=== PATIENT | female | born 1935 | race Caucasian/White ===

== ENCOUNTER → 2022-04-30 10:01 | Outpatient (CLI) | payer MEDICARE, SELFPAY ==
[2022-04-30 19:48] LABS: Basophils # 0.1 K/mm3 (0-0.2); Basophils % 0.8 % (0.1-2.0); Eosinophils # 0.1 K/mm3 (0.0-0.4); Eosinophils % 1.3 % (0.1-12.0); Hematocrit 38.9 % (37.0-47.0); Hemoglobin 12.7 g/dL (12.2-16.2); Lymphocytes # 2.3 K/mm3 (0.7-4.5); Lymphocytes % 37.7 % (10-50); Mean Corpuscular HGB Conc 32.6 g/dL (31.8-35.4); Mean Corpuscular Hemoglobin 29.1 pg (27.0-31.2); Mean Corpuscular Volume 89.4 fl (81-99); Mean Platelet Volume 9.7 fl (7.4-10.4); Monocytes # 0.5 K/mm3 (0.1-1.0); Monocytes % 7.8 % (1.7-9.3); Neutrophils # 3.2 K/mm3 (1.8-7.8); Neutrophils % 52.4 % (37.0-80.0); Platelet Count 285 K/mm3 (142-424); Red Blood Count 4.35 M/mm3 (4.20-5.40); Red Cell Distribution Width 13.4 % (11.5-17.5); White Blood Count 6.1 K/mm3 (4.8-10.8)
[2022-04-30 19:50] LABS: Alanine Aminotransferase 10 U/L (12-78); Albumin Level 4.2 g/dl (3.5-5.0); Albumin/Globulin Ratio 1.4 (1.1-1.8); Alkaline Phosphatase 102 U/L (38-126); Anion Gap 13.8 mEq/L (5-15); Aspartate Amino Transferase 24 U/L (14-36); Bilirubin,Total 0.6 mg/dl (0.2-1.3); Blood Urea Nitrogen 20 mg/dl (7-17); Calcium 9.5 mg/dl (8.4-10.2); Carbon Dioxide 29 mmol/L (22.0-30.0); Chloride 100 mmol/L (98-107); Chol/HDL Ratio 5.5 (1-3.5); Cholesterol 280 mg/dl (140-200); Estimated Glomerular Filt Rate 52 ml/min (>60); GFR (African American) 63 ML/MIN (>60); Globulin 2.9 g/dL (1.3-3.2); Glucose 92 mg/dl (74-100); HDL Cholesterol 51 mg/dl (40-60); Potassium 4.8 mmoL/L (3.5-5.1); Sodium 138 mmol/L (136-145); Total Protein,Serum 7.1 g/dl (6.3-8.2); Triglycerides 117 mg/dl (30-150); VLDL Cholesterol 23 mg/dL (0-40)
[2022-04-30 20:07] LABS: Direct LDL Cholesterol 186.65 mg/dL (100-129)
== END ==
PROVIDERS: PCP Family Medicine; Visit Provider Family Medicine
DX: I10 Essential (primary) hypertension (principal)
CPT/HCPCS: 80053; 80061; 85025

== ENCOUNTER 2022-09-10 10:45 | Inpatient (IN) | payer MEDICARE, SELFPAY ==
[2022-09-10] VITALS (20 sets, daily range): BP systolic 132–198; BP diastolic 76–94; PULSE 75–129; RESP 12–20; TEMP 36.8–43; O2SAT 94–99; BMI 28.2; BMI 22.8
--- NOTE | 2022-09-10 10:48 | XR_ITS ---
FINAL REPORT CLINICAL HISTORY: Left knee pain FINDINGS: LEFT KNEE Three views demonstrate no acute fracture or dislocation. There is mild chondrocalcinosis. There is a moderate joint effusion. IMPRESSION: No acute process. Reviewed, Interpreted and Dictated by Moo Mclain MD Transcribed by Angeles Deras Authenticated and [facility]
--- NOTE | 2022-09-10 10:48 | XR_ITS ---
FINAL REPORT CLINICAL HISTORY: Left hip pain FINDINGS: LEFT HIP: Two views of the left hip demonstrate no acute fracture or dislocation. There is mild narrowing of the left hip joint space. The femoral heads have a normal smooth contour. Soft tissues are unremarkable. IMPRESSION: No acute bony abnormality. Reviewed, Interpreted and Dictated by Moo Mclain MD Transcribed by Angeles Deras Authenticated and [facility]
--- NOTE | 2022-09-10 10:48 | HMH.EDGENADL ---
Discharge Plan Disposition Patient Disposition: Admitted As Inpatient Prescriptions Prescriptions: No Action citalopram 10 mg tablet 15 mg PO DAILY Qty: 135 3RF metoprolol succinate 50 mg tablet extended release 24 hr 25 mg PO DAILY Qty: 45 3RF oxazepam 10 mg capsule 10 mg PO BID PRN (Reason: anxiety) Qty: 60 2RF Clinical Impressions Clinical Impression: Joint effusion of knee, Unable to bear weight on left lower extremity, Septic joint of left knee joint Discharge ED Provider: Evelio Finley General Adult HPI General Chief complaint: Extremity Injury, Lower Stated complaint: Swollen left Knee Time Seen by Provider: 09/10/22 10:48 History of Present Illness HPI narrative: 86-year-old female presenting with left knee pain and difficulty with ambulation. Patient has dementia and history is limited from the patient however EMS provided information that was given to them from the patient's daughter. Apparently the patient is normally highly functional lives at home by herself and next-door to the daughter and is ambulatory at baseline but last was unable to get up from the toilet and since then has had increasing pain and swelling and warmth in her left knee and has been nonambulatory since that time. EMS states that she could not bear any weight when they picked her up and that that they had to use a chairlift to get her down the stairs. No known trauma and there is been no fever. No history of gout that were familiar with the patient's not any anticoagulants. Related Data Previous Rx's Medication Instructions Recorded citalopram 10 mg tablet 15 mg PO DAILY #135 tabs 04/30/22 metoprolol succinate 50 mg 25 mg PO DAILY #45 tabs 04/30/22 tablet,extended release 24 hr oxazepam 10 mg capsule 10 mg PO BID PRN anxiety #60 caps 04/30/22 Allergies Allergy/AdvReac Type Severity Reaction Status Date / Time From TERRAMYCIN W/POLYMYXIN Allergy Unknown UNKNOWN Uncoded 04/30/22 09:36 B SULFATE NOVACAINE Allergy Unknown NA-HALLUCIN Uncoded 05/28/17 14:23 ATIONS PCN (PENICILLIN) Allergy Unknown ITCHY Uncoded 05/28/17 14:23 SULFA (SULFONAMIDE) Allergy Unknown NA-NAUSEA Uncoded 05/28/17 14:23 PFSH [facility] Disclaimer: The information contained in this section may have been updated after the patient was seen, as this information can be updated by other users. Medical History (Updated 09/10/22 @ 13:26 by Evelio Finley MD) Anxiety Depression with anxiety Diverticulosis Hypertension Osteoarthritis Presbycusis of both ears Surgical History (Updated 04/30/22 @ 09:40 by Rosy Villafuerte) History of hysterectomy Social History (Updated 04/30/22 @ 09:41 by Rosy Villafuerte) Smoking Status: Never smoker alcohol intake: never current occupational status: retired Travel in the last 8 weeks: None ROS Obtained: Yes All systems reviewed & no additional complaints except as documented Physical Exam General General appearance: alert Respiratory Respiratory exam: Present normal lung sounds bilaterally Cardiovascular Cardiovascular exam: Present regular rate Extremities Exam Extremities exam: Present other (Left knee is warm nonerythematous decreased range of motion secondary to pain with a moderate joint effusion patient also has tenderness palpation of the lateral aspect of her left hip and left thigh) Neurological Exam Neurological exam: Present alert and oriented X3 Medical Decision Making Yousif Inquiry Pt receiving controlled substance: No Vital Signs: 09/10/22 10:46 09/10/22 11:00 09/10/22 11:00 Temperature 98.3 F Temperature Source Oral Pulse Rate 83 Pulse Rate [Left Radial] 88 Respiratory Rate 16 Blood Pressure 178/82 H 178/82 H Blood Pressure [Right Arm] 184/78 H Blood Pressure Mean 108 Blood Pressure Mean [Right Arm] 113 Blood Pressure Source [Right Arm] Automatic Cuff Blood Pressure Position [Right Arm] Sitting 02 Sat by Pulse Oxi
--- NOTE | 2022-09-10 10:55 | PC.NURSE ---
er @ bs speaking with family
[2022-09-10 11:29] LABS: Basophils # 0.1 K/mm3 (0-0.2); Basophils % 0.5 % (0.1-2.0); Eosinophils # 0.1 K/mm3 (0.0-0.4); Eosinophils % 0.7 % (0.1-12.0); Hematocrit 38.7 % (37.0-47.0); Hemoglobin 12.5 g/dL (12.2-16.2); Lymphocytes # 2.1 K/mm3 (0.7-4.5); Lymphocytes % 19.6 % (10-50); Mean Corpuscular HGB Conc 32.2 g/dL (31.8-35.4); Mean Corpuscular Hemoglobin 28.5 pg (27.0-31.2); Mean Corpuscular Volume 88.6 fl (81-99); Mean Platelet Volume 8.3 fl (7.4-10.4); Monocytes # 0.9 K/mm3 (0.1-1.0); Monocytes % 8.3 % (1.7-9.3); Neutrophils # 7.6 K/mm3 (1.8-7.8); Neutrophils % 70.7 % (37.0-80.0); Platelet Count 284 K/mm3 (142-424); Red Blood Count 4.37 M/mm3 (4.20-5.40); Red Cell Distribution Width 13.7 % (11.5-17.5); White Blood Count 10.8 K/mm3 (4.8-10.8)
[2022-09-10 11:39] LABS: Chloride 99 mmol/L (98-107); Potassium 4.2 mmoL/L (3.5-5.1); Sodium 132 mmol/L (136-145)
[2022-09-10 11:42] LABS: Alanine Aminotransferase 15 U/L (12-78); Albumin/Globulin Ratio 1.1 (1.1-1.8); Alkaline Phosphatase 90 U/L (38-126); Anion Gap 9.2 mEq/L (5-15); Aspartate Amino Transferase 30 U/L (14-36); Bilirubin,Total 1.2 mg/dl (0.2-1.3); Blood Urea Nitrogen 16 mg/dl (7-17); Calcium 8.7 mg/dl (8.4-10.2); Carbon Dioxide 28 mmol/L (22.0-30.0); Creatinine Clearance Estimated 50 mL/min (50-200); Estimated Glomerular Filt Rate 68 ml/min (>60); GFR (African American) 82 ML/MIN (>60); Globulin 3.8 g/dL (1.3-3.2); Glucose 105 mg/dl (74-100); Total Protein,Serum 7.8 g/dl (6.3-8.2)
[2022-09-10 12:13] LABS: Activated Partial Thrombo Time 23.4 seconds (22.8-30.6); INR 0.95 (0.9-1.1); Prothrombin Time 10.3 seconds (10.1-12.5)
--- NOTE | 2022-09-10 12:27 | PC.NURSE ---
assisted pt to bs come and back to bed were she was unable to put weight on left side
--- NOTE | 2022-09-10 12:31 | PC.NURSE ---
Pt back to bed after up using bedside commode with assistance
--- NOTE | 2022-09-10 12:49 | PC.NURSE ---
Approx 35ml knee synovial aspirate fluid removed from left subpatellar space; specimen sent for testing
--- NOTE | 2022-09-10 13:06 | PC.NURSE ---
Lab called to report that cell count and diff on synovial fluid has to be sent out, will verify indication w provider
--- NOTE | 2022-09-10 13:13 | PC.NURSE ---
Dr Finley speaking with Dr Hernandez
--- NOTE | 2022-09-10 13:29 | P.CONPHA_ITS ---
Pharmacy Consult Date: 09/10/22 Time: 13:30 Referring provider: DR. CRAIG Reason for Consult:: VANCOMCYIN DOSING Allergies Allergy/AdvReac Type Severity Reaction Status Date / Time From TERRAMYCIN W/POLYMYXIN Allergy Unknown UNKNOWN Uncoded 04/30/22 09:36 B SULFATE NOVACAINE Allergy Unknown NA-HALLUCIN Uncoded 05/28/17 14:23 ATIONS PCN (PENICILLIN) Allergy Unknown ITCHY Uncoded 05/28/17 14:23 SULFA (SULFONAMIDE) Allergy Unknown NA-NAUSEA Uncoded 05/28/17 14:23 Home Medications Medication Instructions Recorded Confirmed Type citalopram 10 mg tablet 15 mg PO DAILY #135 tabs 04/30/22 04/30/22 Rx metoprolol succinate 50 mg 25 mg PO DAILY #45 tabs 04/30/22 04/30/22 Rx tablet,extended release 24 hr oxazepam 10 mg capsule 10 mg PO BID PRN anxiety #60 caps 04/30/22 04/30/22 Rx New Prescriptions to Start Prescriptions: Height: 1.68 m Weight: 79.379 kg Laboratory Results:: Laboratory Results - last 24 hr 09/10/22 11:11: C-Reactive Protein 108.0 H 09/10/22 11:11: WBC 10.8, RBC 4.37, Hgb 12.5, Hct 38.7, MCV 88.6, MCH 28.5, MCHC 32.2, RDW 13.7, Plt Count 284, MPV 8.3, Neut % (Auto) 70.7, Lymph % (Auto) 19.6, [place] % (Auto) 8.3, Eos % (Auto) 0.7, Baso % (Auto) 0.5, Neut # (Auto) 7.6, Lymph # (Auto) 2.1, [place] # (Auto) 0.9, Eos # (Auto) 0.1, Baso # (Auto) 0.1 09/10/22 11:11: PT 10.3, INR 0.95, APTT 23.4 09/10/22 11:11: Sodium 132 L, Potassium 4.2, Chloride 99, Carbon Dioxide 28, Anion Gap 9.2, BUN 16, Creatinine 0.80, Estimated Creat Clear 50, Estimated GFR 68, Est GFR ( Amer) 82, Glucose 105 H, Calcium 8.7, Total Bilirubin 1.2, AST 30, ALT 15, Alkaline Phosphatase 90, Total Protein 7.8, Albumin 4.0, Globulin 3.8 H, Albumin/Globulin Ratio 1.1 Medical History: Medical History (Updated 09/10/22 @ 13:26 by Evelio Craig MD) Anxiety Depression with anxiety Diverticulosis Hypertension Osteoarthritis Presbycusis of both ears Assessment and Plan Assessment and plan all Dx Assessment and Plan for all problems:: Pharmacokinetic dosing service Patient: Floor: Age: 86 yo Serum creatinine: 1 mg/dL Height: 65.9 Inches Weight (kg): 79.4 Assessment: IBW (kg): 59.07 Dosing wt(kg): 79.4 Estimated Creatinine clearance (ml/min): 37.0 CRCL method: Cockcroft and Gault using ibw(default). Drug selected: Vancomycin Loading dose (mg): 0 Vd (liters): 63.5 (factor used: 0.8 L/kg) Alfred (hr-1): 0.035 Half life (hrs): 19.80 Recommended dose: 1250 mg Interval: 24 hrs Infusion time (hrs): 2.0 Predicted peak (mcg/mL): 33.5 Predicted trough (mcg/mL): 15.51 Total body weight is being used for vancomycin dosing. Recommendations: Give Vancomycin 1250 mg q 24 hrs with an expected Cpeak of 33.5 mcg/ml and an expected Ctrough of 15.51 mcg/ml. ----Vanco only - ignore for aminoglycosides----- CLvanco= 2.22 L/hr AUC 0-24 /DONTE Data: DONTE 0.5 mcg/mL: AUC/DONTE: 1126.1 DONTE 1.0 mcg/mL: AUC/DONTE: 563.1 --------- DONTE 1.5 mcg/mL: AUC/DONTE: 375.4 DONTE 2.0 mcg/mL: AUC/DONTE: 281.5
--- NOTE | 2022-09-10 13:39 | PC.NURSE ---
Dr Finley speaking with Dr Krause
--- NOTE | 2022-09-10 13:43 | PC.NURSE ---
case management called for admission
--- NOTE | 2022-09-10 13:44 | EXP.HP ---
History of Present Illness *Admission Date: 09/10/22 *Reason for visit:: knee pain, swelling *History of present illness: Ms. Smith is a pleasant 86-year-old female with past history of anxiety, hypertension, and mitral valve prolapse. She presented to the ER with left pain and difficulty walking. Pain is gotten worse over the past 4 to 5 days. She presents with her daughter and granddaughter. They state that Saturday she called them and said she could not get off the commode because of knee pain. EMS was called today and brought her to the hospital for further evaluation. Patient is reportedly ambulatory at baseline. Was helping a friend last week rake leaves and to yard work. She is normally very active and functional. She has been less active since her pain last week. Nonambulatory on arrival to the ER. She has been having swelling, warmth, pain in the left knee. Denies any jose systemic fever, shortness of breath, chest pain, nausea or vomiting. No jose trauma to the knee. ER concern for septic arthritis, knee was tapped with turbid fluid removed. Sent for studies. Inflammatory markers elevated. Medicine consulted for further management after consulting with orthopedics for possible washout. After arriving to the floor, patient has no other complaints. Case discussed with orthopedics, planning for washout this evening. Started on empiric antibiotics. Stable on room air [facility] Disclaimer: The information contained in this section may have been updated after the patient was seen, as this information can be updated by other users. Medical History Anxiety Depression with anxiety Diverticulosis Hypertension Osteoarthritis Presbycusis of both ears Surgical History History of hysterectomy Family History Colon cancer Family history of stroke Family history of anemia Family history of diabetes mellitus type II Family history of myocardial infarction Social History Smoking Status: Never smoker alcohol intake: never substance use type: denies use current occupational status: retired Travel in the last 8 weeks: None household members: none housing: house lives independently: Yes marital status: service: No skilled nursing: No physical activity: walking frequency: 3-4 times per week duration: 15-30 minutes/day Review of Systems Review of Systems Review of systems (narrative): 14 point review of systems performed, pertinent positives and negatives as per [facility] Meds Home Medications and Allergies Home Medications Medication Instructions Recorded Confirmed Type citalopram 10 mg tablet 15 mg PO DAILY Anxiety 09/10/22 09/10/22 History metoprolol succinate 50 mg 25 mg PO DAILY Hypertension 09/10/22 09/10/22 History tablet,extended release 24 hr oxazepam 10 mg capsule 10 mg PO BIDP PRN anxiety 09/10/22 09/10/22 History New Prescriptions to Start Prescriptions: Allergies Allergy/AdvReac Type Severity Reaction Status Date / Time oxytetracycline Allergy Intermediate Unknown Verified 09/10/22 13:51 [From Terramycin with allergy Polymyxin B] reaction Penicillins Allergy Intermediate Rash Verified 09/10/22 13:51 polymyxin B Allergy Intermediate Unknown Verified 09/10/22 13:51 [From Terramycin with allergy Polymyxin B] reaction procaine Allergy Intermediate Hallucinati Verified 09/10/22 13:51 ng Sulfa (Sulfonamide Allergy Intermediate Nausea Verified 09/10/22 13:51 Antibiotics) Exam Data for Last 24 hours Vital signs and Labs for Last 24 Hours: Temp Pulse Resp BP Pulse Ox 98.3 F 83 16 178/82 H 98 09/10/22 10:46 09/10/22 11:00 09/10/22 10:46 09/10/22 11:00 09/10/22 11:00 Laboratory Results - last 24 hr
--- NOTE | 2022-09-10 13:44 | PC.NURSE ---
covid swab sent to lab
[2022-09-10 13:49] LABS: Coronavirus 19, PCR Not Detected (NotDetected); Influenza A, PCR Not Detected (NotDetected); Influenza B, PCR Not Detected (NotDetected)
[2022-09-10 13:53] LABS: Erythrocyte Sedimentation Rate 15 mm/hr (0-30)
--- NOTE | 2022-09-10 14:25 | PC.NURSE ---
call lab to get eto on covid test results, states it finished getting ready to result
--- NOTE | 2022-09-10 14:26 | PC.NURSE ---
Report called to Miriam, on inpt unit and will come down to transport pt; no further questions
--- NOTE | 2022-09-10 15:55 | HMH.PHAINT1 ---
Pharmacy Intervention Comments: MEDICATION RECONCILIATION COMPLETE USING LIST FROM MOST RECENT MD OFFICE VISIT (04/2022) AND EXTERNAL PHARMACY FILL HISTORY.
--- NOTE | 2022-09-10 16:24 | EXP.ORTH.CON ---
History of Present Illness *Admission Date: 09/10/22 *Reason for visit:: Left knee pain *History of present illness: Ms. Smith is an 86-year-old female patient admitted to the acute inpatient service after presenting to the [facility] emergency department with 3-4 days of insidious onset left knee pain, swelling, warmth. No known injuries. The patient has a history of dementia and is a poor historian, history obtained from emergency department documentation as well as patient's daughter and granddaughter who are present at the bedside. Per family's report, the patient has had 3-4 days of left knee pain, swelling, and warmth. She has had increasing difficulty ambulating. At baseline reports that the patient is very high functioning and ambulates without the use of any walking aids. No history of prior knee surgeries, fevers, chills, rigors, or distal tingling/numbness. Her past medical history significant for hypertension and prolapse mitral valve, she is not on any anticoagulants. She has not had anything to eat or drink since 7:00 this morning. They deny any other symptoms or concerns at this time. [facility] Disclaimer: The information contained in this section may have been updated after the patient was seen, as this information can be updated by other users. Medical History Anxiety Depression with anxiety Diverticulosis Hypertension Osteoarthritis Presbycusis of both ears Surgical History History of hysterectomy Family History Other Colon cancer Family history of anemia Family history of diabetes mellitus type II Family history of myocardial infarction Family history of stroke Social History Smoking Status: Never smoker alcohol intake: never current occupational status: retired Travel in the last 8 weeks: None household members: none housing: house lives independently: Yes marital status: service: No fdc: No physical activity: walking frequency: 3-4 times per week duration: 15-30 minutes/day Meds Home Medications and Allergies Home Medications Medication Instructions Recorded Confirmed Type citalopram 10 mg tablet 15 mg PO DAILY Anxiety 09/10/22 09/10/22 History metoprolol succinate 50 mg 25 mg PO DAILY Hypertension 09/10/22 09/10/22 History tablet,extended release 24 hr oxazepam 10 mg capsule 10 mg PO BIDP PRN anxiety 09/10/22 09/10/22 History New Prescriptions to Start Prescriptions: Allergies Allergy/AdvReac Type Severity Reaction Status Date / Time oxytetracycline Allergy Intermediate Unknown Verified 09/10/22 13:51 [From Terramycin with allergy Polymyxin B] reaction Penicillins Allergy Intermediate Rash Verified 09/10/22 13:51 polymyxin B Allergy Intermediate Unknown Verified 09/10/22 13:51 [From Terramycin with allergy Polymyxin B] reaction procaine Allergy Intermediate Hallucinati Verified 09/10/22 13:51 ng Sulfa (Sulfonamide Allergy Intermediate Nausea Verified 09/10/22 13:51 Antibiotics) Ortho Exam (Inpt) Vital signs and Labs for Last 24 Hours: Temp Pulse Resp BP Pulse Ox 99.2 F 95 H 20 170/81 H 98 09/10/22 14:56 09/10/22 14:56 09/10/22 14:56 09/10/22 14:56 09/10/22 14:56 Laboratory Results - last 24 hr 09/10/22 11:11: C-Reactive Protein 108.0 H 09/10/22 11:11: WBC 10.8, RBC 4.37, Hgb 12.5, Hct 38.7, MCV 88.6, MCH 28.5, MCHC 32.2, RDW 13.7, Plt Count 284, MPV 8.3, Neut % (Auto) 70.7, Lymph % (Auto) 19.6, [place] % (Auto) 8.3, Eos % (Auto) 0.7, Baso % (Auto) 0.5, Neut # (Auto) 7.6, Lymph # (Auto) 2.1, [place] # (Auto) 0.9, Eos # (Auto) 0.1, Baso # (Auto) 0.1, ESR 15 09/10/22 11:11: PT 10.3, INR 0.95, APTT 23.4 09/10/22 11:11: Sodium 132 L, Potassium 4.2, Chloride 99, Carbon Dioxide 28,
--- NOTE | 2022-09-10 17:36 | P.PN_ITS ---
[facility] Disclaimer: The information contained in this section may have been updated after the patient was seen, as this information can be updated by other users. Medical History Anxiety Depression with anxiety Diverticulosis Hypertension Osteoarthritis Presbycusis of both ears Surgical History History of hysterectomy Family History Other Colon cancer Family history of anemia Family history of diabetes mellitus type II Family history of myocardial infarction Family history of stroke Social History Smoking Status: Never smoker alcohol intake: never substance use type: denies use current occupational status: retired Travel in the last 8 weeks: None household members: none housing: house lives independently: Yes marital status: service: No correction: No physical activity: walking frequency: 3-4 times per week duration: 15-30 minutes/day [facility] Anesthesia Checklist Patient Identification Patient Identification: Verbal (Name & ) Structural Data Admitted From: Inpatient Planned Operative Procedure/s: i/d l knee Consent for Planned Operative Procedure(s) Verified: Yes NPO Status Verified Time NPO: 06:30 Airway Assessment C-Spine Mobility Assessed: Yes TMJ Mobility Assessed: Yes Dentition: Edentulous Neurological Assessment Level of Consciousness: Awake, Alert and Appropriate Anesthesia Plan Anesthesia Risk discussed: Yes Anesthesia Plan: Verified ASA Class: II Anesthesia Type: General
--- NOTE | 2022-09-10 17:46 | P.OP_ITS ---
Date of procedure: 09/10/22 Pre-op Diagnosis:: left knee effusion, concern septic knee arthritis Post-op Diagnosis:: same Procedure performed:: 99865: left knee arthrotomy / lavage 34182: left knee synovectomy Surgeon:: Markus Hernandez JR, MD Automobile Salesman(s):: Daria Cheney PA-C PROGRAM DIRECTOR/MUSIC DIRECTOR:: Kyle Huff Anesthesia: GETA Estimated blood loss (mL): 50 Clinical Note:: 86-year-old female with left knee effusion, aspirate yielding turbid appearing fluid. No cell count was available. I had a discussion with her and her family regarding further management, recommended left knee arthrotomy, lavage, synovectomy. They were amenable with the plan. We discussed the risk and benefits of surgery. Risks included but were not limited to pain, bleeding, infection, damage to adjacent structures, need for further surgery, wound h ealing complications, loss of limb, . Patient expressed verbal consent and written consent was obtained for the above procedure. Operative findings:: Turbid appearing fluid sent for culture Operative note:: Patient was identified in preoperative holding. Operative site was marked in indelible ink. History, physical, consent were reviewed and updated. Patient was surrendered to the anesthesia team, taken to the operative suite, placed supine on a well-padded operative table. Ipsilateral hip bump was placed as was a nonsterile thigh tourniquet. Anesthesia was induced. The operative extremity was prepped and draped in the usual sterile fashion. The operative team donned sterile gowns and gloves and a timeout was called. All in attendance agreed regarding the patient's identity, procedure, operative site. Weight-based dose of antibiotics was given prior to incision. I elevated the operative extremity and the tourniquet was elevated to 250 mmHg. A venous tourniquet was recognized shortly thereafter and I deflated the tourniquet. I made a longitudinal incision centered over the patella, dissected medially, performed a medial parapatellar arthrotomy, noted turbid appearing fluid, swab specimens of which I sent for culture. I performed a thorough anterior synovectomy, copiously irrigated the wound and joint with Irrisept followed by normal saline. I placed a drain exiting superior laterally, closed the wound in anatomic layers with monofilament suture and liana. Vancomycin powder was placed in the subcutaneous tissue. Sterile dressings applied. Counts were correct x2. There were no apparent complications. I was present and scrubbed for the entire case. Tourniquet time (min): 5 Condition: stable Disposition: PACU Specimens:: Swab specimen sent for culture Complications:: None apparent Postoperatively: Weightbearing as tolerated, follow cultures, low threshold for PICC line given presumed septic arthritis. Plan for drain removal postoperative day #2 if output is less than 30 mL per shift.
--- NOTE | 2022-09-10 18:13 | P.PNANES_ITS ---
[facility] Anesthesia Record Part I Anesthesia Record I Intake, IV Amount: 800 Estimated blood loss (mL): 100 Urine output (mL): 0 Blood Pressure: 198/85 SaO2: 97 Pulse Rate: 120 Respiratory Rate: 12 Temperature: 98.2 F Patient is:: Awake and Stable Stable to PACU at:: 18:10
--- NOTE | 2022-09-10 23:48 | P.PN_ITS ---
Subjective *Date: 09/11/22 *Time: 00:27 Exam Data for Last 24 hours Vital signs and Labs for Last 24 Hours: Temp Pulse Resp BP Pulse Ox 99.6 F 125 H 18 181/89 H 96 09/10/22 18:45 09/10/22 18:45 09/10/22 18:45 09/10/22 18:45 09/10/22 18:45 Laboratory Results - last 24 hr 09/10/22 11:11: C-Reactive Protein 108.0 H 09/10/22 11:11: WBC 10.8, RBC 4.37, Hgb 12.5, Hct 38.7, MCV 88.6, MCH 28.5, MCHC 32.2, RDW 13.7, Plt Count 284, MPV 8.3, Neut % (Auto) 70.7, Lymph % (Auto) 19.6, [place] % (Auto) 8.3, Eos % (Auto) 0.7, Baso % (Auto) 0.5, Neut # (Auto) 7.6, Lymph # (Auto) 2.1, [place] # (Auto) 0.9, Eos # (Auto) 0.1, Baso # (Auto) 0.1, ESR 15 09/10/22 11:11: PT 10.3, INR 0.95, APTT 23.4 09/10/22 11:11: Sodium 132 L, Potassium 4.2, Chloride 99, Carbon Dioxide 28, Anion Gap 9.2, BUN 16, Creatinine 0.80, Estimated Creat Clear 50, Estimated GFR 68, Est GFR ( Amer) 82, Glucose 105 H, Calcium 8.7, Total Bilirubin 1.2, AST 30, ALT 15, Alkaline Phosphatase 90, Total Protein 7.8, Albumin 4.0, Globulin 3.8 H, Albumin/Globulin Ratio 1.1 09/10/22 13:42: SARS-CoV-2 (PCR) Not detected, Influenza A Untype (PCR) Not detected, Influenza Type B (PCR) Not detected I & O for Last 24 hours: Intake & Output 09/07/22 09/08/22 09/09/22 09/10/22 23:59 23:59 23:59 23:59 Intake Total 800 / 800 Output Total 750 / 750 Balance 50 / 50 Weight 64.155 kg Microbiology Reports for the Last 24 Hours: Microbiology 09/10/22 12:45 Synovial Fluid Gram Stain - Final Assessment and Plan *Assessment and plan (1) Septic joint of left knee joint: Status: Acute Category: Medical Code(s): M00.9 - Pyogenic arthritis, unspecified Plan Ms. Smith is an 86 year old female with a past medical history of anxiety, hypertension and mitral valve prolapse. She presented on 09/10/22 with left knee pain x 4-5 days. It was aspirated in the ED and send out studies of cell count, gram stain, culture and crystal analysis were obtained. Orthopedic Surgery performed irrigation and debridement; noted turbid appearing fluid and swab specimens were sent for culture. Only met 1 of 4 Radha criteria; no fever, ESR 15, and WBC <12k. She has been receiving vancomycin (pharmacy dosing), cefepime and Flagyl. #Left knee septic arthritis #hypertension #mitral valve prolapse #anxiety Left knee effusion -Continue vancomycin, cefepime and flagyl. Gram stain was negative. cell counts, culture of fluid and crystal analysis are pending. Per Orthopedic Surgery, there is a low threshold for PICC line given presumed septic arthritis. Weightbearing as tolerated. Plan for drain removal postoperative day 2 if output is less than 30mL per shift. Full code Regular diet after surgery DVT ppx: heparin subcu
[2022-09-11] VITALS (7 sets, daily range): BP systolic 149–174; BP diastolic 54–80; PULSE 67–92; RESP 16–20; TEMP 36.5–36.9; O2SAT 94–99; BMI 22.7
[2022-09-11 07:17] LABS: Basophils % 0.1 % (0.1-2.0); Eosinophils % 0.1 % (0.1-12.0); Lymphocytes # 0.7 K/mm3 (0.7-4.5); Lymphocytes % 12.4 % (10-50); Mean Corpuscular HGB Conc 31.6 g/dL (31.8-35.4); Mean Corpuscular Hemoglobin 27.9 pg (27.0-31.2); Mean Corpuscular Volume 88.3 fl (81-99); Mean Platelet Volume 7.7 fl (7.4-10.4); Monocytes # 0.3 K/mm3 (0.1-1.0); Monocytes % 4.8 % (1.7-9.3); Neutrophils # 4.9 K/mm3 (1.8-7.8); Neutrophils % 82.7 % (37.0-80.0); Platelet Count 251 K/mm3 (142-424); Red Blood Count 3.85 M/mm3 (4.20-5.40); Red Cell Distribution Width 13.4 % (11.5-17.5); White Blood Count 5.9 K/mm3 (4.8-10.8)
[2022-09-11 07:19] LABS: Hemoglobin 10.7 g/dL (12.2-16.2)
[2022-09-11 07:22] LABS: Chloride 101 mmol/L (98-107); Potassium 4.3 mmoL/L (3.5-5.1); Sodium 132 mmol/L (136-145)
[2022-09-11 07:25] LABS: Alanine Aminotransferase 15 U/L (12-78); Albumin Level 3.1 g/dl (3.5-5.0); Albumin/Globulin Ratio 0.9 (1.1-1.8); Alkaline Phosphatase 72 U/L (38-126); Anion Gap 9.3 mEq/L (5-15); Aspartate Amino Transferase 23 U/L (14-36); Bilirubin,Total 0.6 mg/dl (0.2-1.3); Blood Urea Nitrogen 20 mg/dl (7-17); Calcium 8.4 mg/dl (8.4-10.2); Carbon Dioxide 26 mmol/L (22.0-30.0); Creatinine Clearance Estimated 40 mL/min (50-200); Estimated Glomerular Filt Rate 68 ml/min (>60); GFR (African American) 82 ML/MIN (>60); Globulin 3.3 g/dL (1.3-3.2); Glucose 151 mg/dl (74-100); Magnesium 2.1 mg/dl (1.6-2.3); Total Protein,Serum 6.4 g/dl (6.3-8.2)
[2022-09-11 07:32] LABS: C-Reactive Protein 112.4 mg/L (0-4)
[2022-09-11 07:43] LABS: Erythrocyte Sedimentation Rate 107 mm/hr (0-30)
--- NOTE | 2022-09-11 09:25 | EXP.ORTH.PN ---
Subjective *Date: 09/11/22 *Time: 08:50 Interval history: Ms. Smith is a 86-year-old female who underwent a left knee arthrotomy, lavage, synovectomy performed by Dr. Hernandez yesterday evening/08/2022. Today the patient is postop day #1. This morning the patient is lying comfortably in bed and her daughter and granddaughter are present at the bedside. She reports left knee pain as to be expected but states it is well controlled with as needed pain medication and rest, she states that she was able to sleep well last night. She reports that she had breakfast this morning and denies any episode of nausea or vomiting. No history of any distal tingling/numbness, fevers, chills, or rigors. Therapy is present at the bedside and patient was able to transfer to the bedside chair with the use of a walker and assistance from therapy. They deny any other symptoms or concerns at this time. Ortho Exam (Inpt) Vital signs and Labs for Last 24 Hours: Temp Pulse Resp BP Pulse Ox 98.5 F 67 19 160/67 H 96 09/11/22 07:55 09/11/22 07:55 09/11/22 07:55 09/11/22 07:55 09/11/22 07:55 Laboratory Results - last 24 hr 09/10/22 11:11: C-Reactive Protein 108.0 H 09/10/22 11:11: WBC 10.8, RBC 4.37, Hgb 12.5, Hct 38.7, MCV 88.6, MCH 28.5, MCHC 32.2, RDW 13.7, Plt Count 284, MPV 8.3, Neut % (Auto) 70.7, Lymph % (Auto) 19.6, Pender % (Auto) 8.3, Eos % (Auto) 0.7, Baso % (Auto) 0.5, Neut # (Auto) 7.6, Lymph # (Auto) 2.1, Pender # (Auto) 0.9, Eos # (Auto) 0.1, Baso # (Auto) 0.1, ESR 15 09/10/22 11:11: PT 10.3, INR 0.95, APTT 23.4 09/10/22 11:11: Sodium 132 L, Potassium 4.2, Chloride 99, Carbon Dioxide 28, Anion Gap 9.2, BUN 16, Creatinine 0.80, Estimated Creat Clear 50, Estimated GFR 68, Est GFR ( Amer) 82, Glucose 105 H, Calcium 8.7, Total Bilirubin 1.2, AST 30, ALT 15, Alkaline Phosphatase 90, Total Protein 7.8, Albumin 4.0, Globulin 3.8 H, Albumin/Globulin Ratio 1.1 09/10/22 13:42: SARS-CoV-2 (PCR) Not detected, Influenza A Untype (PCR) Not detected, Influenza Type B (PCR) Not detected 09/11/22 06:36: WBC 5.9 D, RBC 3.85 L, Hgb 10.7 L D, Hct 34.0 L, MCV 88.3, MCH 27.9, MCHC 31.6 L, RDW 13.4, Plt Count 251, MPV 7.7, Neut % (Auto) 82.7 H, Lymph % (Auto) 12.4, Pender % (Auto) 4.8, Eos % (Auto) 0.1, Baso % (Auto) 0.1, Neut # (Auto) 4.9, Lymph # (Auto) 0.7, Pender # (Auto) 0.3, Eos # (Auto) 0.0, Baso # (Auto) 0.0, ESR 107 H 09/11/22 06:36: Sodium 132 L, Potassium 4.3, Chloride 101, Carbon Dioxide 26, Anion Gap 9.3, BUN 20 H, Creatinine 0.80, Estimated Creat Clear 40, Estimated GFR 68, Est GFR ( Amer) 82, Glucose 151 H D, Calcium 8.4, Magnesium 2.1, Total Bilirubin 0.6, AST 23, ALT 15, Alkaline Phosphatase 72, C-Reactive Protein 112.4 H, Total Protein 6.4, Albumin 3.1 L D, Globulin 3.3 H, Albumin/Globulin Ratio 0.9 L I & O for Labs for Last 24 Hours: Intake & Output 09/08/22 09/09/22 09/10/22 09/11/22 23:59 23:59 23:59 23:59 Intake Total 800 / 950 1142 / 1142 Output Total 750 / 750 270 / 270 Balance 50 / 200 872 / 872 Weight 141 lb 7 oz 141 lb 7.001 oz Microbiology Reports for the Last 24 Hours: Microbiology 09/10/22 12:45 Synovial Fluid Gram Stain - Final Head: Present normocephalic and atraumatic Eyes: Present as per HPI ENT: Present normal exam Neck: Present normal inspection, full ROM and trachea midline; Absent lymphadenopathy Respiratory: Present normal respiratory effort, able to speak in complete sentences and symmetric chest movement; Absent accessory muscle use Cardiac: Present Reg Rate and Rhythm GI: Present soft; Absent tenderness Comment:: Upon examination of the left knee: Dressings present are clean, dry, and intact. There is a surgical drain in place with minimal amount of serosanguineous drainage present in the bulb. Knee range of motion is limited secondary to pain. Thigh and calf are soft nontender; Homans' sign is negative. No clinical evidence of DVT or compartment syndrome noted. Posterior tibial pulse 1+; c
--- NOTE | 2022-09-11 10:18 | HMH.OTEV ---
OT Inpatient Evaluation Rehab OT IP Evaluation Start: 09/10/22 18:08 Freq: ONCE Status: Active Protocol: Document 09/11/22 09:57 RENEAIRAM (Rec: 09/11/22 10:18 GUZMANMARY [id number]) Rehab OT IP Assessment Subjective History 86-year-old female with left knee effusion, aspirate yielding turbid appearing fluid. No cell count was available. I had a discussion with her and her family regarding further management, recommended left knee arthrotomy, lavage, synovectomy. They were amenable with the plan. We discussed the risk and benefits of surgery. Risks included but were not limited to pain, bleeding, infection, damage to adjacent structures, need for further surgery, wound healing complications, loss of limb, . Patient expressed verbal consent and written consent was obtained for the above procedure. Patient lives in 2 story home with 3-4 COSME. Patient has family who lives close by. Patient independent with ADLs and fx'l mobility prior to the surgery. Subjective I can try to get up. Instructed Patient on proper hand and foot placment to complete bed mobility from supine->sit @ EOB requiring Max A x2. Instructed Patient on SPT from EOB->recliner requriing Mod A x2 with extended RB and time. Instructed Patient on using RW to assist with transfer to prevent LOB and decrease pain levels. Objective Patient Orientation Person,Place,Name,Age,Year Upper Extremity Gross ROM WFL Bed Mobility bed mobility - supine/sit Assist Level Maximum x 2 (75% assist) Transfer Training Sit/Stand/Pivot Transfer Assist Level Moderate x 2 (50% assist) Chair Transfer
--- NOTE | 2022-09-11 11:15 | HMH.PTEV ---
Physical Therapy Evaluation Rehab PT IP Evaluation Start: 09/10/22 18:08 Freq: ONCE Status: Active Protocol: Document 09/11/22 10:22 CINDY (Rec: 09/11/22 11:14 CINDY [id number]) Subjective/History History History Pt is a 86 y/o female who presented to [facility] ED via EMS on 09/10/22 due to inability to get off the commode with complaints of left knee pain and difficulty walking. Pt presented with warmth, swelling and redness of the L knee without apparent systemic symptoms or known trauma to the knee. Ortho was consulted and pt underwent L knee lavage , arthrotomy and synovectomy on 09/10/22. Pt currently is WBAT on the LLE with a dressing over the knee and post-op drain in place. Medical History: anxiety, hypertension, and mitral valve prolapse Subjective Subjective Pt with slightly altered mental status during initial evaluation, pt's daughter and granddaughter present in the room. Pt seated in bedside chair upon arrival. Pt reports she lives home alone in a two -story house with a couple steps with HR to enter the front, none to enter the back. Pt reports her bedroom is on the first floor. Pt reports prior to hospitalization she was independent with gait and all ADLs. Per note, pt was very active prior to onset of L knee pain. Pt unable to verbalize L knee pain on VAS scale but required increased time for all mobility due to report of pain and guarded movements. With sit to stand transfer pt stated Hold my leg up. You have to let me fully relax before I can move my knee multiple times and
--- NOTE | 2022-09-11 14:26 | EXP.PN ---
Subjective *Date: 09/11/22 *Time: 09:00 Interval history: No acute events overnight. Currently without any pain. Exam Data for Last 24 hours Vital signs and Labs for Last 24 Hours: Temp Pulse Resp BP Pulse Ox 97.8 F 70 18 157/54 H 98 09/11/22 11:25 09/11/22 11:25 09/11/22 11:25 09/11/22 11:25 09/11/22 11:25 Laboratory Results - last 24 hr 09/10/22 13:42: SARS-CoV-2 (PCR) Not detected, Influenza A Untype (PCR) Not detected, Influenza Type B (PCR) Not detected 09/11/22 06:36: WBC 5.9 D, RBC 3.85 L, Hgb 10.7 L D, Hct 34.0 L, MCV 88.3, MCH 27.9, MCHC 31.6 L, RDW 13.4, Plt Count 251, MPV 7.7, Neut % (Auto) 82.7 H, Lymph % (Auto) 12.4, Ward % (Auto) 4.8, Eos % (Auto) 0.1, Baso % (Auto) 0.1, Neut # (Auto) 4.9, Lymph # (Auto) 0.7, Ward # (Auto) 0.3, Eos # (Auto) 0.0, Baso # (Auto) 0.0, ESR 107 H 09/11/22 06:36: Sodium 132 L, Potassium 4.3, Chloride 101, Carbon Dioxide 26, Anion Gap 9.3, BUN 20 H, Creatinine 0.80, Estimated Creat Clear 40, Estimated GFR 68, Est GFR ( Amer) 82, Glucose 151 H D, Calcium 8.4, Magnesium 2.1, Total Bilirubin 0.6, AST 23, ALT 15, Alkaline Phosphatase 72, C-Reactive Protein 112.4 H, Total Protein 6.4, Albumin 3.1 L D, Globulin 3.3 H, Albumin/Globulin Ratio 0.9 L I & O for Last 24 hours: Intake & Output 09/08/22 09/09/22 09/10/22 09/11/22 23:59 23:59 23:59 23:59 Intake Total 800 / 950 1382 / 1382 Output Total 750 / 750 1020 / 1020 Balance 50 / 200 362 / 362 Weight 64.155 kg 64.155 kg Microbiology Reports for the Last 24 Hours: Microbiology 09/10/22 12:45 Synovial Fluid Gram Stain - Final 09/10/22 12:45 Synovial Fluid Body Fluid Culture - Preliminary NO GROWTH AFTER 24 HOURS Constitutional Constitutional: no acute distress *Routine HEENT Exam Head: Present normocephalic Eye: Present EOMI and PERRL ENT: Present mucous membranes moist *Routine Neck Exam Neck: Present supple; Absent lymphadenopathy *Routine Respiratory Exam Respiratory: Present CTA bilaterally *Routine Cardiovascular Exam Cardiovascular: Present RRR *Routine Abdominal Exam Abdominal: Present soft and normoactive bowel sounds; Absent tenderness *Routine Extremities Exam Extremities: Absent cyanosis, clubbing or edema Comments: Left knee with ZAN wrap and JAYCOB drain *Routine Skin Exam Skin: Present warm; Absent rash *Routine Neurological Exam Neurological: Present alert and oriented X3 Assessment and Plan *Assessment and plan (1) Septic joint of left knee joint: Status: Acute Category: Medical Code(s): M00.9 - Pyogenic arthritis, unspecified Plan Ms. Smith is an 86 year old female with a past medical history of anxiety, hypertension and mitral valve prolapse. She presented on 09/10/22 with left knee pain x 4-5 days. It was aspirated in the ED and send out studies of cell count, gram stain, culture and crystal analysis were obtained. Orthopedic Surgery performed irrigation and debridement; noted turbid appearing fluid and swab specimens were sent for culture. Only met 1 of 4 Radha criteria; no fever, ESR 15, and WBC <12k. She has been receiving vancomycin (pharmacy dosing), cefepime and Flagyl. #Left knee septic arthritis #hypertension #mitral valve prolapse #anxiety Left knee effusion -Continue vancomycin, cefepime and flagyl. Gram stain was negative. cell counts, culture of fluid and crystal analysis are pending.? Per Orthopedic Surgery, there is a low threshold for PICC line given presumed septic arthritis. Weightbearing as tolerated. Plan for drain removal postoperative day 2 if output is less than 30mL per shift. Full code Regular diet after surgery DVT ppx: heparin subcu Discharge Planning: PT and OT have recommended Rehab or SNF. I will consult CM.
--- NOTE | 2022-09-11 15:29 | PC.NURSE ---
PT HAS BEEN ALERT TO SELF FOR MAJORITY OF SHIFT. INTERMITTENTLY CONFUSED, DAUGHTER AT BEDSIDE AND HELPS RE-DIRECT PT. PT HAS C/O INTERMITTENT PAIN, TX PER MAR. PT HAS AMBULATED WITH PT, UP TO CHAIR. TOLERATING WELL. PUREWICK IN PLACE DRAINING DARK YELLOW URINE. JAYCOB DRAIN IN PLACE, DRESSING TO L KNEE CDI. NO OTHER NEEDS OR C/O NOTED THUS FAR, VSS.
[2022-09-12] VITALS: BP 161/69; PULSE 78; RESP 18; TEMP 36.5; O2SAT 97
[2022-09-12 04:00] VITALS: BP 148/75; PULSE 72; RESP 16; TEMP 36.8; O2SAT 98
--- NOTE | 2022-09-12 05:01 | PC.NURSE ---
Patient oriented to self, noted with increased pain, c/o bandage tightness. Cornelius wrap loosened, prn acetaminophen offered and refused by patient due increased agitation and anxiety. Patient's granddaughter at bedside, educated on indications for use of toradol; patient and granddaughter agreeable to half dose of toradol; verbal order obtained from Brittany Sterling APRN to give half dose; 15mgs administered. Ice packs applied to LLE, LLE elevated. Granddaughter remains at bedside with patient.
[2022-09-12 06:44] LABS: Basophils % 0.1 % (0.1-2.0); Chloride 105 mmol/L (98-107); Eosinophils % 0.1 % (0.1-12.0); Hematocrit 33.7 % (37.0-47.0); Lymphocytes # 2.2 K/mm3 (0.7-4.5); Lymphocytes % 15.4 % (10-50); Mean Corpuscular HGB Conc 32.6 g/dL (31.8-35.4); Mean Corpuscular Hemoglobin 28.7 pg (27.0-31.2); Mean Platelet Volume 8.6 fl (7.4-10.4); Monocytes # 0.8 K/mm3 (0.1-1.0); Monocytes % 5.6 % (1.7-9.3); Neutrophils # 11.1 K/mm3 (1.8-7.8); Neutrophils % 78.8 % (37.0-80.0); Platelet Count 343 K/mm3 (142-424); Potassium 3.8 mmoL/L (3.5-5.1); Red Blood Count 3.83 M/mm3 (4.20-5.40); Red Cell Distribution Width 13.7 % (11.5-17.5); Sodium 136 mmol/L (136-145)
[2022-09-12 06:47] LABS: Anion Gap 10.8 mEq/L (5-15); Blood Urea Nitrogen 28 mg/dl (7-17); Calcium 8.7 mg/dl (8.4-10.2); Carbon Dioxide 24 mmol/L (22.0-30.0); Creatinine Clearance Estimated 40 mL/min (50-200); Estimated Glomerular Filt Rate 59 ml/min (>60); GFR (African American) 72 ML/MIN (>60); Glucose 114 mg/dl (74-100)
[2022-09-12 06:53] LABS: C-Reactive Protein 74.8 mg/L (0-4)
[2022-09-12 07:10] VITALS: BP 190/72; PULSE 76; RESP 18; TEMP 36.9; O2SAT 99
--- NOTE | 2022-09-12 07:44 | EXP.PN ---
Subjective *Date: 09/12/22 *Time: 13:27 Interval history: This morning blood pressures are elevated. JAYCOB output is around 15mL/24hrs. WBC count has increase from 5.9 to 14. CRP has come down from 112 to 74. Intra-operative gram stain was normal and wound culture is pending. Synovial fluid culture that was obtained when the patient's knee was aspirated in the ED has no growth at 24 hours. Exam Data for Last 24 hours Vital signs and Labs for Last 24 Hours: Temp Pulse Resp BP Pulse Ox 98.5 F 76 18 190/72 H 99 09/12/22 07:10 09/12/22 07:10 09/12/22 07:10 09/12/22 07:10 09/12/22 07:10 Laboratory Results - last 24 hr 09/12/22 06:22: WBC 14.0 H D, RBC 3.83 L, Hgb 11.0 L, Hct 33.7 L, MCV 88.0, MCH 28.7, MCHC 32.6, RDW 13.7, Plt Count 343 D, MPV 8.6, Neut % (Auto) 78.8, Lymph % (Auto) 15.4, Candler % (Auto) 5.6, Eos % (Auto) 0.1, Baso % (Auto) 0.1, Neut # (Auto) 11.1 H, Lymph # (Auto) 2.2, Candler # (Auto) 0.8, Eos # (Auto) 0.0, Baso # (Auto) 0.0 09/12/22 06:22: Sodium 136, Potassium 3.8, Chloride 105, Carbon Dioxide 24, Anion Gap 10.8, BUN 28 H D, Creatinine 0.90, Estimated Creat Clear 40, Estimated GFR 59, Est GFR ( Amer) 72, Glucose 114 H D, Calcium 8.7, C-Reactive Protein 74.8 H D I & O for Last 24 hours: Intake & Output 09/09/22 09/10/22 09/11/22 09/12/22 23:59 23:59 23:59 23:59 Intake Total 800 / 950 2222 / 2322 100 / 100 Output Total 750 / 750 1690 / 2200 1510 / 1510 Balance 50 / 200 532 / 122 -1410 / -1410 Weight 64.155 kg 64.155 kg Microbiology Reports for the Last 24 Hours: Microbiology 09/10/22 17:31 Knee,Left Gram Stain - Final 09/10/22 12:45 Synovial Fluid Gram Stain - Final 09/10/22 12:45 Synovial Fluid Body Fluid Culture - Preliminary NO GROWTH AFTER 24 HOURS Constitutional Constitutional: no acute distress *Routine HEENT Exam Head: Present normocephalic Eye: Present EOMI and PERRL ENT: Present mucous membranes moist *Routine Neck Exam Neck: Present supple; Absent lymphadenopathy *Routine Respiratory Exam Respiratory: Present CTA bilaterally *Routine Cardiovascular Exam Cardiovascular: Present RRR *Routine Abdominal Exam Abdominal: Present soft and normoactive bowel sounds; Absent tenderness *Routine Extremities Exam Extremities: Absent cyanosis, clubbing or edema Comments: Left knee with ZAN wrap and JAYCOB drain *Routine Skin Exam Skin: Present warm; Absent rash *Routine Neurological Exam Neurological: Present alert and oriented X3 Assessment and Plan *Assessment and plan (1) Septic joint of left knee joint: Status: Acute Category: Medical Code(s): M00.9 - Pyogenic arthritis, unspecified Plan Ms. Smith is an 86 year old female with a past medical history of anxiety, hypertension and mitral valve prolapse. She presented on 09/10/22 with left knee pain x 4-5 days. It was aspirated in the ED and gram stain, culture, cell count and crystal analysis were sent out. Orthopedic Surgery performed irrigation and debridement; noted turbid appearing fluid and swab specimens were sent for culture. Only met 1 of 4 Radha criteria; no fever, ESR 15, and WBC <12k. She has been receiving vancomycin (pharmacy dosing), cefepime and Flagyl. #Left knee septic arthritis #hypertension #mitral valve prolapse #anxiety Left knee effusion -Continue vancomycin, cefepime and flagyl. Gram stain was negative. cell counts, culture of fluid and crystal analysis are pending.? Per Orthopedic Surgery, there is a low threshold for PICC line given presumed septic arthritis. Weightbearing as tolerated. Plan for drain removal postoperative day 2 if output is less than 30mL per shift. Full code Regular diet DVT ppx: heparin subcu Discharge Planning: Possibly discharge to [facility] tomorrow
--- NOTE | 2022-09-12 09:49 | PC.NURSE ---
PT DID NOT TOLERATE BED BATH WELL. STATES SHE IS IN PAIN AND IS VERY AGITATED. PRN ANXIETY MED GIVEN AT THIS TIME, LEG ADJUSTED, ICE IN PLACE, GRANDDAUGHTER AT BEDSIDE. PT IS SETTLING. AWARE.
--- NOTE | 2022-09-12 10:15 | EXP.ORTH.PN ---
Subjective *Date: 09/12/22 *Time: 10:20 Interval history: Ms. Smith is a 86-year-old female who underwent a left knee arthrotomy, lavage, synovectomy performed by Dr. Hernandez on 09/10/2022. Today the patient is postop day #2. This morning the patient is lying comfortably in bed and her granddaughter is present at the bedside. She reports left knee pain as to be expected but states it is well controlled with as needed pain medication and rest. She denies any episode of nausea or vomiting and has been eating and drinking well. No history of any distal tingling/numbness, fevers, chills, or rigors. She states that she has not been out of bed yet today, she had a bed bath and has had increased knee pain since that time. They deny any other symptoms or concerns at this time. Ortho Exam (Inpt) Vital signs and Labs for Last 24 Hours: Temp Pulse Resp BP Pulse Ox 98.5 F 76 18 190/72 H 99 09/12/22 07:10 09/12/22 07:10 09/12/22 07:10 09/12/22 07:10 09/12/22 07:10 Laboratory Results - last 24 hr 09/12/22 06:22: WBC 14.0 H D, RBC 3.83 L, Hgb 11.0 L, Hct 33.7 L, MCV 88.0, MCH 28.7, MCHC 32.6, RDW 13.7, Plt Count 343 D, MPV 8.6, Neut % (Auto) 78.8, Lymph % (Auto) 15.4, Blair % (Auto) 5.6, Eos % (Auto) 0.1, Baso % (Auto) 0.1, Neut # (Auto) 11.1 H, Lymph # (Auto) 2.2, Blair # (Auto) 0.8, Eos # (Auto) 0.0, Baso # (Auto) 0.0 09/12/22 06:22: Sodium 136, Potassium 3.8, Chloride 105, Carbon Dioxide 24, Anion Gap 10.8, BUN 28 H D, Creatinine 0.90, Estimated Creat Clear 40, Estimated GFR 59, Est GFR ( Amer) 72, Glucose 114 H D, Calcium 8.7, C-Reactive Protein 74.8 H D I & O for Labs for Last 24 Hours: Intake & Output 09/09/22 09/10/22 09/11/22 09/12/22 23:59 23:59 23:59 23:59 Intake Total 800 / 950 2222 / 2322 700 / 700 Output Total 750 / 750 1690 / 2200 1510 / 1510 Balance 50 / 200 532 / 122 -810 / -810 Weight 141 lb 7 oz 141 lb 7.001 oz Microbiology Reports for the Last 24 Hours: Microbiology 09/10/22 17:31 Knee,Left Gram Stain - Final 09/10/22 12:45 Synovial Fluid Gram Stain - Final 09/10/22 12:45 Synovial Fluid Body Fluid Culture - Preliminary NO GROWTH AFTER 24 HOURS Head: Present normocephalic and atraumatic Eyes: Present as per HPI ENT: Present normal exam Neck: Present normal inspection, full ROM and trachea midline; Absent lymphadenopathy Respiratory: Present normal respiratory effort, able to speak in complete sentences and symmetric chest movement; Absent accessory muscle use Cardiac: Present Reg Rate and Rhythm GI: Present soft; Absent tenderness Comment:: Upon examination of the left knee: Dressings present are clean, dry, and intact. There is a surgical drain in place with minimal amount of serosanguineous drainage present in the bulb. Knee range of motion is limited secondary to pain. Thigh and calf are soft nontender; Homans' sign is negative. No clinical evidence of DVT or compartment syndrome noted. Posterior tibial pulse 1+; cap refill is brisk. Sensation to light touch is grossly intact throughout. Patient is actively mobilizing the foot, ankle, and toes. Skin: Present intact, warm and normal turgor; Absent cyanosis, erythema, lesions or jaundice Neuro: Present Cranial Nerve 2-12 Intact, Motor Function Intact, Sensory Function Intact, alert, awake, oriented x 3, tone normal and moves all extremities; Absent Numbness or Tingling Assessment and Plan *Assessment and plan (1) Septic joint of left knee joint: Status: Acute Category: Medical Code(s): M00.9 - Pyogenic arthritis, unspecified Plan I have discussed the clinical findings, perioperative findings, and progress with the patient and her granddaughter. Patient is an 86-year-old female status post left knee arthrotomy, lavage, synovectomy with presumed septic arthritis. Dressings present over the left knee are clean, dry, intact, surgical drain is in place with minimal amount of serosan
--- NOTE | 2022-09-12 11:24 | CARE MANAGER ---
Addendum entered by Penny Tejada RN 09/13/22 14:05: Correction: No covid test is required. Addendum entered by Penny Tejada RN 09/13/22 12:24: Patient is discharging to [facility] today. Covid test is required and order has been placed. Patient will be transported by family. Original Note: Met with patient and daughter @ bedside on 09/11, to discuss discharge planning. Patient Choice signed for [facility], clinical was faxed. Per Zaira @ [facility] authorization has been started. Patient will discharge to there once MD says she is medically ready.
[2022-09-12 14:19] LABS: Clarity,Fluid Slightly hazy (Clear); Color,Fluid Yellow (Yellow); Eosinophils,Fluid 0 % (Not Estab.); Lymphocytes,Fluid 1 % (Not Estab.); Macrophages,Fluid 21 % (Not Estab.); Nucleated cells, Syn. Fluid 3840 cells/uL (0-200); Polys,Fluid 78 % (Not Estab.); RBC,Fluid 0 /uL (Not Estab.)
[2022-09-12 15:13] VITALS: BP 130/47; PULSE 84; RESP 17; TEMP 36.5; O2SAT 94
--- NOTE | 2022-09-12 15:35 | PC.NURSE ---
A&OX1. PT HAS HAD A LOT OF CONFUSION TODAY. FAMILY REMAINS AT BEDSIDE. HAS BEEN IN BED THUS FAR. TX L KNEE PAIN WITH TYLENOL AROUND THE CLOCK. PURE WICK CONTINUES IN PLACE, DRAINING YELLOW URINE. PT NEEDS FREQUENT REDIRECTION. JAYCOB DRAIN STILL IN PLACE. NO NEEDS OR C/O AT THIS TIME, VSS.
[2022-09-12 19:45] VITALS: BP 141/58; PULSE 79; RESP 16; TEMP 36.8; O2SAT 99
[2022-09-13] VITALS: BP 177/73; PULSE 76; RESP 20; TEMP 36.7; O2SAT 100
[2022-09-13 04:00] VITALS: BP 172/75; PULSE 76; RESP 16; TEMP 36.8; O2SAT 97
--- NOTE | 2022-09-13 04:08 | PC.NURSE ---
could not weigh patient due to the bed scale being wrong. patient cant stand alone to use standing scale and refused to get up.
--- NOTE | 2022-09-13 04:24 | PC.NURSE ---
Patient continues to present with intermittent confusion, poor sleep noted for the past two night shifts. Complained of muscle spasms, prn flexeril order obtained from [employer], administered with good effect. Patient remains on antibiotic therapy. Drain to L knee in place, small amount of serosangineous output noted, >10mL. Family at bedside all shift.
[2022-09-13 07:04] LABS: Basophils % 0.3 % (0.1-2.0); Chloride 105 mmol/L (98-107); Eosinophils # 0.2 K/mm3 (0.0-0.4); Eosinophils % 2.3 % (0.1-12.0); Hematocrit 31.9 % (37.0-47.0); Hemoglobin 10.4 g/dL (12.2-16.2); Lymphocytes % 31.1 % (10-50); Mean Corpuscular HGB Conc 32.7 g/dL (31.8-35.4); Mean Corpuscular Hemoglobin 29.1 pg (27.0-31.2); Mean Corpuscular Volume 89.1 fl (81-99); Mean Platelet Volume 8.5 fl (7.4-10.4); Monocytes # 0.9 K/mm3 (0.1-1.0); Monocytes % 9.1 % (1.7-9.3); Neutrophils # 5.6 K/mm3 (1.8-7.8); Neutrophils % 57.3 % (37.0-80.0); Platelet Count 320 K/mm3 (142-424); Potassium 3.4 mmoL/L (3.5-5.1); Red Blood Count 3.58 M/mm3 (4.20-5.40); Red Cell Distribution Width 13.8 % (11.5-17.5); Sodium 134 mmol/L (136-145); White Blood Count 9.8 K/mm3 (4.8-10.8)
[2022-09-13 07:07] LABS: Anion Gap 6.4 mEq/L (5-15); Blood Urea Nitrogen 21 mg/dl (7-17); Carbon Dioxide 26 mmol/L (22.0-30.0); Creatinine Clearance Estimated 40 mL/min (50-200); Estimated Glomerular Filt Rate 59 ml/min (>60); GFR (African American) 72 ML/MIN (>60)
[2022-09-13 07:08] LABS: Calcium 8.1 mg/dl (8.4-10.2); Glucose 91 mg/dl (74-100)
[2022-09-13 07:14] LABS: C-Reactive Protein 34.5 mg/L (0-4)
[2022-09-13 07:24] VITALS: BP 162/74; PULSE 77; RESP 18; TEMP 36.7; O2SAT 97
--- NOTE | 2022-09-13 08:05 | EXP.PN ---
Subjective *Date: 09/13/22 *Time: 08:34 Interval history: SBP has ranged 130-177 WBC count has come down from 14 to 9.8 K is 3.4 CRP has come down 112 -> 74 -> 34 cell count from joint aspirate with 3840 nucleated cells of which 78% are polynuclear crystal analysis reveals calcium pyrophosphate dihydrate crystals observed by polarized light microscopy. Exam Data for Last 24 hours Vital signs and Labs for Last 24 Hours: Temp Pulse Resp BP Pulse Ox 98.1 F 77 18 162/74 H 97 09/13/22 07:24 09/13/22 07:24 09/13/22 07:24 09/13/22 07:24 09/13/22 07:24 Laboratory Results - last 24 hr 09/10/22 12:45: Fluid Clarity Slightly hazy, Fluid Lining Cell TNP, Synovial Color Yellow, Synovial RBC 0, Synovial Tot Nuc Cell 3840 H, Synovial Eosinophils% 0, Synovial Polynuclear % 78, Synovial Lymphocytes % 1, Synovial Macrophages % 21, Synovial Crystal ID Comment, Synovial Fluid Comment TNP 09/13/22 06:41: WBC 9.8 D, RBC 3.58 L, Hgb 10.4 L, Hct 31.9 L, MCV 89.1, MCH 29.1, MCHC 32.7, RDW 13.8, Plt Count 320, MPV 8.5, Neut % (Auto) 57.3, Lymph % (Auto) 31.1, [place] % (Auto) 9.1, Eos % (Auto) 2.3, Baso % (Auto) 0.3, Neut # (Auto) 5.6, Lymph # (Auto) 3.0, [place] # (Auto) 0.9, Eos # (Auto) 0.2, Baso # (Auto) 0.0 09/13/22 06:41: Sodium 134 L, Potassium 3.4 L, Chloride 105, Carbon Dioxide 26, Anion Gap 6.4, BUN 21 H, Creatinine 0.90, Estimated Creat Clear 40, Estimated GFR 59, Est GFR ( Amer) 72, Glucose 91, Calcium 8.1 L, C-Reactive Protein 34.5 H D I & O for Last 24 hours: Intake & Output 09/10/22 09/11/22 09/12/22 09/13/22 23:59 23:59 23:59 23:59 Intake Total 800 / 950 2222 / 2322 940 / 1240 300 / 300 Output Total 750 / 750 1690 / 2200 2920 / 2920 1550 / 1550 Balance 50 / 200 532 / 122 -1980 / -1680 -1250 / -1250 Weight 64.155 kg 64.155 kg Microbiology Reports for the Last 24 Hours: Microbiology 09/10/22 13:42 Blood Blood Culture - Preliminary NO GROWTH AFTER 48 HOURS 09/10/22 13:42 Blood Blood Culture - Preliminary NO GROWTH AFTER 48 HOURS 09/10/22 17:31 Knee,Left Gram Stain - Final 09/10/22 17:31 Knee,Left Wound Culture - Preliminary NO GROWTH AFTER 24 HOURS 09/10/22 12:45 Synovial Fluid Gram Stain - Final 09/10/22 12:45 Synovial Fluid Body Fluid Culture - Preliminary NO GROWTH AFTER 48 HOURS Assessment and Plan *Assessment and plan (1) Septic joint of left knee joint: Status: Acute Category: Medical Code(s): M00.9 - Pyogenic arthritis, unspecified Plan The patient has pseudogout. I will stop antibiotics and start naproxen 500mg BID. Knee XR from 09/10/22 revealed mild chondrocalcinosis and a moderate joint effusion. Most cases of CPPD disease are idiopathic but joint trauma, familial cppd disease and a variety of metabolic and endocrine disorders are associated with or may cause the illness. Will give KCl 60mEq Ms. Smith is an 86 year old female with a past medical history of anxiety, hypertension and mitral valve prolapse. She presented on 09/10/22 with left knee pain x 4-5 days. It was aspirated in the ED and gram stain, culture, cell count and crystal analysis were sent out. Orthopedic Surgery performed irrigation and debridement; noted turbid appearing fluid and swab specimens were sent for culture. Only met 1 of 4 Radha criteria; no fever, ESR 15, and WBC <12k. She has been receiving vancomycin (pharmacy dosing), cefepime and Flagyl. #Left knee inflammatory arthritis #hypertension #mitral valve prolapse #anxiety Left knee effusion -Continue vancomycin, cefepime and flagyl. Gram stain was negative. cell counts, culture of fluid and crystal analysis are pending.? Per Orthopedic Surgery, there is a low threshold for PICC line given presumed septic arthritis. Weightbearing as tolerated. Plan for drain removal postoperative day 2 if output is less than 30mL per sh
--- NOTE | 2022-09-13 08:30 | P.PN_ITS ---
Subjective *Date: 09/13/22 *Time: 08:30 Medical Exam Vital signs and Labs for Last 24 Hours: Vital Signs Temp Pulse Resp BP Pulse Ox 09/13/22 07:24 98.1 F 77 18 162/74 H 97 09/13/22 04:00 98.2 F 76 16 172/75 H 97 09/13/22 00:00 98.1 F 76 20 177/73 H 100 09/12/22 19:45 98.3 F 79 16 141/58 H 99 09/12/22 15:13 97.7 F 84 17 130/47 L 94 L Intake and Output 09/12/22 09/13/22 09/13/22 23:59 07:59 15:59 Intake Total 300 / 540 240 / 540 Output Total 210 / 2920 1550 / 1550 Balance -210 / -1680 -1250 / -1010 240 / -1010 Intake: Intake, Oral Amount 240 / 240 Intake, Total IV Amount 300 / 300 Cefepime HCl 1 gm In 0.9 % 100 / 100 Sodium Chloride 50 ml @ 100 mls /hr IV Q12H MAYELA Rx#:[id number] Metronidaz/Sod Chl 500 mg In 200 / 200 100 ml @ 100 mls/hr IV Q8H MAYELA Rx#:[id number] Output: Output, Urine Amount 200 / 2900 1550 / 1550 Output, Drainage Amount 10 / 20 Left Knee 10 Other: Number of Unmeasured Voids 1 1 Laboratory Results - last 24 hr 09/10/22 12:45: Fluid Clarity Slightly hazy, Fluid Lining Cell TNP, Synovial Color Yellow, Synovial RBC 0, Synovial Tot Nuc Cell 3840 H, Synovial Eosinophils% 0, Synovial Polynuclear % 78, Synovial Lymphocytes % 1, Synovial Macrophages % 21, Synovial Crystal ID Comment, Synovial Fluid Comment TNP 09/13/22 06:41: WBC 9.8 D, RBC 3.58 L, Hgb 10.4 L, Hct 31.9 L, MCV 89.1, MCH 29.1, MCHC 32.7, RDW 13.8, Plt Count 320, MPV 8.5, Neut % (Auto) 57.3, Lymph % (Auto) 31.1, [place] % (Auto) 9.1, Eos % (Auto) 2.3, Baso % (Auto) 0.3, Neut # (Auto) 5.6, Lymph # (Auto) 3.0, [place] # (Auto) 0.9, Eos # (Auto) 0.2, Baso # (Auto) 0.0 09/13/22 06:41: Sodium 134 L, Potassium 3.4 L, Chloride 105, Carbon Dioxide 26, Anion Gap 6.4, BUN 21 H, Creatinine 0.90, Estimated Creat Clear 40, Estimated GFR 59, Est GFR ( Amer) 72, Glucose 91, Calcium 8.1 L, C-Reactive Protein 34.5 H D I & O for Labs for Last 24 Hours: Intake & Output 09/10/22 09/11/22 09/12/22 09/13/22 23:59 23:59 23:59 23:59 Intake Total 800 / 950 2222 / 2322 940 / 1240 540 / 540 Output Total 750 / 750 1690 / 2200 2920 / 2920 1550 / 1550 Balance 50 / 200 532 / 122 -1980 / -1680 -1010 / -1010 Weight 64.155 kg 64.155 kg Microbiology Reports for the Last 24 Hours: Microbiology 09/10/22 13:42 Blood Blood Culture - Preliminary NO GROWTH AFTER 48 HOURS 09/10/22 13:42 Blood Blood Culture - Preliminary NO GROWTH AFTER 48 HOURS 09/10/22 17:31 Knee,Left Gram Stain - Final 09/10/22 17:31 Knee,Left Wound Culture - Preliminary NO GROWTH AFTER 24 HOURS 09/10/22 12:45 Synovial Fluid Gram Stain - Final 09/10/22 12:45 Synovial Fluid Body Fluid Culture - Preliminary NO GROWTH AFTER 48 HOURS The patient's infection will respond to the chosen ABx?: Yes Is the patient receiving the right drug, dose, and route?: Yes Could a more targeted ABx be ordered?: No (AFEBRILE, WBC WNL, NO GROWTH IN CX.)
--- NOTE | 2022-09-13 09:20 | EXP.ORTH.PN ---
Subjective *Date: 09/13/22 *Time: 10:25 Interval history: Ms. Smith is a 86-year-old female who underwent a left knee arthrotomy, lavage, synovectomy performed by Dr. Hernandez on 09/10/2022. Today the patient is postop day #3. This morning the patient is sitting comfortably in a chair at the bedside and her son and daughter are present. She reports left knee pain as to be expected but states it is well controlled with as needed pain medication and rest. She denies any episodes of nausea or vomiting and has been eating and drinking well. No history of any distal tingling/numbness, fevers, chills, or rigors. She reports that she is overall doing better today. They deny any other symptoms or concerns at this time. Ortho Exam (Inpt) Vital signs and Labs for Last 24 Hours: Temp Pulse Resp BP Pulse Ox 98.1 F 77 18 162/74 H 97 09/13/22 07:24 09/13/22 07:24 09/13/22 07:24 09/13/22 07:24 09/13/22 07:24 Laboratory Results - last 24 hr 09/10/22 12:45: Fluid Clarity Slightly hazy, Fluid Lining Cell TNP, Synovial Color Yellow, Synovial RBC 0, Synovial Tot Nuc Cell 3840 H, Synovial Eosinophils% 0, Synovial Polynuclear % 78, Synovial Lymphocytes % 1, Synovial Macrophages % 21, Synovial Crystal ID Comment, Synovial Fluid Comment TNP 09/13/22 06:41: WBC 9.8 D, RBC 3.58 L, Hgb 10.4 L, Hct 31.9 L, MCV 89.1, MCH 29.1, MCHC 32.7, RDW 13.8, Plt Count 320, MPV 8.5, Neut % (Auto) 57.3, Lymph % (Auto) 31.1, [place] % (Auto) 9.1, Eos % (Auto) 2.3, Baso % (Auto) 0.3, Neut # (Auto) 5.6, Lymph # (Auto) 3.0, [place] # (Auto) 0.9, Eos # (Auto) 0.2, Baso # (Auto) 0.0 09/13/22 06:41: Sodium 134 L, Potassium 3.4 L, Chloride 105, Carbon Dioxide 26, Anion Gap 6.4, BUN 21 H, Creatinine 0.90, Estimated Creat Clear 40, Estimated GFR 59, Est GFR ( Amer) 72, Glucose 91, Calcium 8.1 L, C-Reactive Protein 34.5 H D I & O for Labs for Last 24 Hours: Intake & Output 09/10/22 09/11/22 09/12/22 09/13/22 23:59 23:59 23:59 23:59 Intake Total 800 / 950 2222 / 2322 940 / 1240 540 / 540 Output Total 750 / 750 1690 / 2200 2920 / 2920 1550 / 1550 Balance 50 / 200 532 / 122 -1980 / -1680 -1010 / -1010 Weight 141 lb 7 oz 141 lb 7.001 oz Microbiology Reports for the Last 24 Hours: Microbiology 09/10/22 13:42 Blood Blood Culture - Preliminary NO GROWTH AFTER 48 HOURS 09/10/22 13:42 Blood Blood Culture - Preliminary NO GROWTH AFTER 48 HOURS 09/10/22 17:31 Knee,Left Gram Stain - Final 09/10/22 17:31 Knee,Left Wound Culture - Preliminary NO GROWTH AFTER 24 HOURS 09/10/22 12:45 Synovial Fluid Gram Stain - Final 09/10/22 12:45 Synovial Fluid Body Fluid Culture - Preliminary NO GROWTH AFTER 48 HOURS Head: Present normocephalic and atraumatic Eyes: Present as per HPI ENT: Present normal exam Neck: Present normal inspection, full ROM and trachea midline; Absent lymphadenopathy Respiratory: Present normal respiratory effort, able to speak in complete sentences and symmetric chest movement; Absent accessory muscle use Cardiac: Present Reg Rate and Rhythm GI: Present soft; Absent tenderness Comment:: Upon examination of the left knee: Dressings present are clean, dry, and intact. There is a surgical drain in place with minimal amount of serosanguineous drainage present in the bulb. Out of the dressings, the surgical incision appears healthy and is healing well. Surgical liana in place, wound edges well approximated. No erythema, induration, bleeding, purulent drainage, or other signs of infection noted. Her diffuse swelling and warmth have improved. Knee range of motion is limited secondary to pain. Thigh and calf are soft nontender; Homans' sign is negative. No clinical evidence of DVT or compartment syndrome noted. Posterior tibial pulse 1+; cap refill is brisk. Sensation to light touch is grossly intact throughout. Patient is actively
--- NOTE | 2022-09-13 10:31 | EXP.DC.SUM ---
General Admission date:: 09/10/22 Discharge date: 09/13/22 Hospital Course Hospital Course Hospital Course: Ms. Smith is an 86 year old female with a past medical history of anxiety, hypertension and mitral valve prolapse. She presented on 09/10/22 with left knee pain x 4-5 days. It was aspirated in the ED and gram stain, culture, cell count and crystal analysis were sent out. Orthopedic Surgery performed irrigation and debridement; noted turbid appearing fluid and swab specimens were sent for culture.? The patient's cell count from left knee synovial fluid was 3,840; gram stain did not reveal any bacteria and culture had no growth. Crystal analysis revealed dihydrate crystals observed by polarized light microscopy. The patient received a couple days of broad spectrum antibiotics. Pain was treated with IV toradol PRN. By the day of discharge pain had significantly decreased in intensity and she was able to ambulate within her room with a walker. She can bear weight on the left lower extremity as tolerated. She will need to take 5 days of naproxen and will be discharging to [facility]. #pseudogout Exam Data for Last 24 hours Vital signs and Labs for Last 24 Hours: Temp Pulse Resp BP Pulse Ox 98.1 F 77 18 162/74 H 97 09/13/22 07:24 09/13/22 07:24 09/13/22 07:24 09/13/22 07:24 09/13/22 07:24 Laboratory Results - last 24 hr 09/10/22 12:45: Fluid Clarity Slightly hazy, Fluid Lining Cell TNP, Synovial Color Yellow, Synovial RBC 0, Synovial Tot Nuc Cell 3840 H, Synovial Eosinophils% 0, Synovial Polynuclear % 78, Synovial Lymphocytes % 1, Synovial Macrophages % 21, Synovial Crystal ID Comment, Synovial Fluid Comment TNP 09/13/22 06:41: WBC 9.8 D, RBC 3.58 L, Hgb 10.4 L, Hct 31.9 L, MCV 89.1, MCH 29.1, MCHC 32.7, RDW 13.8, Plt Count 320, MPV 8.5, Neut % (Auto) 57.3, Lymph % (Auto) 31.1, [place] % (Auto) 9.1, Eos % (Auto) 2.3, Baso % (Auto) 0.3, Neut # (Auto) 5.6, Lymph # (Auto) 3.0, [place] # (Auto) 0.9, Eos # (Auto) 0.2, Baso # (Auto) 0.0 09/13/22 06:41: Sodium 134 L, Potassium 3.4 L, Chloride 105, Carbon Dioxide 26, Anion Gap 6.4, BUN 21 H, Creatinine 0.90, Estimated Creat Clear 40, Estimated GFR 59, Est GFR ( Amer) 72, Glucose 91, Calcium 8.1 L, C-Reactive Protein 34.5 H D I & O for Last 24 hours: Intake & Output 09/10/22 09/11/22 09/12/22 09/13/22 23:59 23:59 23:59 23:59 Intake Total 800 / 950 2222 / 2322 940 / 1240 540 / 540 Output Total 750 / 750 1690 / 2200 2920 / 2920 1650 / 1650 Balance 50 / 200 532 / 122 -1980 / -1680 -1110 / -1110 Weight 64.155 kg 64.155 kg Microbiology Reports for the Last 24 Hours: Microbiology 09/10/22 12:45 Synovial Fluid Gram Stain - Final 09/10/22 12:45 Synovial Fluid Body Fluid Culture - Preliminary Gram Positive Cocci 09/10/22 13:42 Blood Blood Culture - Preliminary NO GROWTH AFTER 48 HOURS 09/10/22 13:42 Blood Blood Culture - Preliminary NO GROWTH AFTER 48 HOURS 09/10/22 17:31 Knee,Left Gram Stain - Final 09/10/22 17:31 Knee,Left Wound Culture - Preliminary NO GROWTH AFTER 24 HOURS Constitutional Constitutional: no acute distress *Routine HEENT Exam Head: Present normocephalic Eye: Present EOMI and PERRL ENT: Present mucous membranes moist *Routine Neck Exam Neck: Present supple; Absent lymphadenopathy *Routine Respiratory Exam Respiratory: Present CTA bilaterally *Routine Cardiovascular Exam Cardiovascular: Present RRR *Routine Abdominal Exam Abdominal: Present soft and normoactive bowel sounds; Absent tenderness *Routine Extremities Exam Extremities: Absent cyanosis, clubbing or edema Comments: Left knee with ZAN wrap and JAYCOB drain *Routine Skin Exam Skin: Present warm; Absent rash *Routine Neurological Exam Neurological: Present alert and oriented X3 Results Data Completed and Pending Labs on day of discharge: Labs from del
[2022-09-13 10:33] VITALS: BP 158/80; PULSE 74; RESP 16; TEMP 36.9; O2SAT 99
[2022-09-13 13:45] LABS: Coronavirus 19, PCR Not Detected (NotDetected); Influenza A, PCR Not Detected (NotDetected); Influenza B, PCR Not Detected (NotDetected)
--- NOTE | 2022-09-14 14:28 | CARE MANAGER ---
Spoke with patient nurse for post-discharge phone interview, no issues noted.
--- NOTE | 2022-09-17 07:31 | EXP.ANES.II ---
[facility] Anesthesia Record Part II Anesthesia Record Part II Discharge Time: 18:40 Destination: Second Floor PACU nurse assessment reviewed?: Yes Patient Condition:: Good Anesthesia Complications:: None Swallowing reflex intact?: Yes Cyanosis?: No Blood Pressure: 191/83 Pulse Rate: 120 Temperature: 98.2 F Mental Status: Alert & Oriented Pain level:: 0 Nausea and/or vomitting:: None Intake, IV Amount: 0
[2022-09-17 07:32] VITALS: BP 191/83; PULSE 120; TEMP 36.8
== END 2022-09-13 15:38 | DRG 487 ==
LOC: ER 13:26 → 2ND 14:23
PROVIDERS: Internal Medicine; Orthopaedic Surgery; Admitting Provider Internal Medicine Adolescent Medicine; Emergency Provider Student in an Organized Health Care Education/Training Program; PCP Family Medicine; Visit Provider Internal Medicine Adolescent Medicine
PROC: 0S9D0ZZ Drainage of Left Knee Joint, Open Approach (ICD-10-PCS; CPT 20610; principal; 2022-09-10 17:30)
DX: M00.9 Pyogenic arthritis, unspecified (principal); I10 Essential (primary) hypertension; M19.90 Unspecified osteoarthritis, unspecified site; I34.1 Nonrheumatic mitral (valve) prolapse; F41.8 Other specified anxiety disorders
CPT/HCPCS: 20610; 27334; 36415; 73502; 73562; 80048; 80053; 83735; 85025; 85610; 85651; 85730; 86140; 87040; 87070; 87075; 87077; 87186; 87205; 89051; 97110; 97116; 97162; 97165; 97530; 97535; 99285; C9803; J0692; J2405; J3370; U0003; U0005

== ENCOUNTER 2023-03-10 21:19 | Observation (INO) | payer MEDICARE, SELFPAY ==
[2023-03-10] VITALS (8 sets, daily range): BP systolic 161–200; BP diastolic 66–91; PULSE 73–83; RESP 14–22; TEMP 36.2–36.7; O2SAT 95–100; BMI 25.6; BMI 24.5
--- NOTE | 2023-03-10 21:21 | ECG_ITS ---
APPROVED REPORT Exam: Resting ECG HR:79 bpm ECG Measurements Heart Rate 79 AXES PA 234 P 71 QRSd 81 QRS 46 QT 387 T 58 QTc 421 Conclusion SINUS RHYTHM WITH FIRST DEGREE AV BLOCK ABNORMAL ECG UNCONFIRMED REPORT Electronically signed by : Iam Stein MD 03/11/2023 17:09:34
--- NOTE | 2023-03-10 21:25 | CT_ITS ---
PROCEDURE INFORMATION: Exam: CT Head Without Contrast Exam date and time: 03/10/2023 9:35 PM Age: 87 years old Clinical indication: Stroke-like symptoms; Speech disturbance; Additional info: Slurred speech, L wkness, chest pain, presyncope TECHNIQUE: Imaging protocol: Computed tomography of the head without contrast. Radiation optimization: All CT scans at this facility use at least one of these dose optimization techniques: automated exposure control; mA and/or kV adjustment per patient size (includes targeted exams where dose is matched to clinical indication); or iterative reconstruction. Other technique: STROKE PROTOCOL was implemented. REPORTING DATA: Count of CT and Cardiac NM exams in prior 12 months: This patient has received 0 known CTs and 0 known cardiac nuclear medicine studies in the 12 months prior to the current study. COMPARISON: No relevant prior studies available. FINDINGS: Brain: Intracranial vascular calcification. Decreased attenuation of the supratentorial white matter is likely secondary to chronic microvascular ischemia. No acute intracranial hemorrhage. Cerebral ventricles: Ventricular and subarachnoid spaces are age appropriate. Paranasal sinuses: Visualized sinuses are unremarkable. No fluid levels. Mastoid air cells: Visualized mastoid air cells are well aerated. Bones/joints: Unremarkable. No acute fracture. Soft tissues: Unremarkable. IMPRESSION: No acute intracranial abnormality. ASSESSMENT: ASPECTS (Josee Stroke Program Early CT Score) is 10.
--- NOTE | 2023-03-10 21:25 | CT_ITS ---
PROCEDURE INFORMATION: Exam: CTA Chest With Contrast Exam date and time: 03/10/2023 9:47 PM Age: 87 years old Clinical indication: Pain; Chest pressure; Additional info: Slurred speech, L wkness, chest pain, presyncope TECHNIQUE: Imaging protocol: Computed tomographic angiography of the chest with contrast. Exam focused on the arteries. 3D rendering (Not supervised by radiologist): MIP and/or 3D reconstructed images were created by the technologist. Radiation optimization: All CT scans at this facility use at least one of these dose optimization techniques: automated exposure control; mA and/or kV adjustment per patient size (includes targeted exams where dose is matched to clinical indication); or iterative reconstruction. Contrast material: ISOVUE; Contrast volume: 70 ml; Contrast route: INTRAVENOUS (IV); REPORTING DATA: Count of CT and Cardiac NM exams in prior 12 months: This patient has received 0 known CTs and 0 known cardiac nuclear medicine studies in the 12 months prior to the current study. COMPARISON: CT ANGIO HEAD 03/10/2023 9:43 PM FINDINGS: Pulmonary arteries: Normal. No pulmonary emboli. Aorta: Moderate atherosclerotic changes of the aorta without aneurysmal dilatation. Thyroid: 1 cm hypodense right thyroid nodule. Lungs: Bilateral upper lobe interlobular septal thickening and ground-glass opacities. No consolidation. Few scattered pulmonary nodules the largest of which within the inferior lingula measures 6 mm. Bilateral lower lobe atelectasis. No masses. Pleural spaces: Unremarkable. No pneumothorax. No pleural effusion. Heart: Unremarkable. No cardiomegaly. No pericardial effusion. Coronary arteries: Mild coronary artery calcifications. Lymph nodes: Unremarkable. No enlarged lymph nodes. Bones/joints: Degenerative changes. No acute fracture. Soft tissues: Unremarkable. IMPRESSION: 1. No pulmonary artery embolism. 2. Bilateral upper lobe interlobular septal thickening ground-glass opacities which may be seen with pulmonary edema or interstitial lung disease. 3. Several pulmonary nodules the largest of which measures 6 mm the inferior lingula. For patients at low risk (minimal or absent history of smoking and of other known risk factors), recommend CT Chest at 3-6 months, then consider CT Chest at 18-24 months. For patients at high risk (history of smoking or of other known risk factors), recommend CT Chest at 3-6 months, then CT Chest at 18-24 months. (Reference: Marleen) COMMENTS: Consistent with the [employer]'s Incidental Findings Committee white paper (J [employer]io Radiol 2015): In patients aged 35 years and older with an incidental thyroid nodule equal to or greater than 1.[address], MRI or extrathyroidal US, further evaluation with dedicated thyroid US is recommended for patients with normal life expectancy and without comorbidities. For smaller nodules without suspicious features, no further evaluation or follow up is recommended. REFERENCES: Marleen Jang, et al. Guidelines for Management of Incidental Pulmonary Nodules Detected on CT Images: From the Fle[employer]ner Society 2017. Radiology. 2017;284(1):228-243.
--- NOTE | 2023-03-10 21:25 | CT_ITS ---
PROCEDURE INFORMATION: Exam: CTA Head With Contrast, Arteriography Exam date and time: 03/10/2023 9:43 PM Age: 87 years old Clinical indication: Stroke-like symptoms; Speech disturbance; Additional info: Slurred speech, L wkness, chest pain, presyncope TECHNIQUE: Imaging protocol: Computed tomographic angiography of the head with contrast. Exam focused on the arteries. 3D rendering (Not supervised by radiologist): MIP and/or 3D reconstructed images were created by the technologist. Radiation optimization: All CT scans at this facility use at least one of these dose optimization techniques: automated exposure control; mA and/or kV adjustment per patient size (includes targeted exams where dose is matched to clinical indication); or iterative reconstruction. Contrast material: ISOVUE; Contrast volume: 75 ml; Contrast route: INTRAVENOUS (IV); REPORTING DATA: Count of CT and Cardiac NM exams in prior 12 months: This patient has received 0 known CTs and 0 known cardiac nuclear medicine studies in the 12 months prior to the current study. COMPARISON: CT HEAD/BRAIN WO CON 03/10/2023 9:35 PM FINDINGS: ANTERIOR CIRCULATION: Right internal carotid artery: Calcification involving the right carotid siphon without significant stenosis. Right middle cerebral artery: Moderate right MCA M1 stenosis. Right anterior cerebral artery: No occlusion or significant stenosis. No aneurysm. Left internal carotid artery: Calcification involving the left carotid siphon without significant stenosis. Left middle cerebral artery: Moderate to severe left MCA M1 stenosis. Moderate left MCA M2 stenosis. Left anterior cerebral artery: Hypoplastic left A1 segment. POSTERIOR CIRCULATION: Right vertebral artery: Right vertebral artery is diminutive following the takeoff of PICA. Left vertebral artery: Left vertebral artery is dominant. Basilar artery: No occlusion or significant stenosis. No aneurysm. 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 Left posterior cerebral artery: No occlusion or significant stenosis. No aneurysm. IMPRESSION: 1. 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 2. 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 3. Moderate right MCA M1 stenosis. 4. Additional findings as above. PROCEDURE INFORMATION: Exam: CTA Neck With Contrast Exam date and time: 03/10/2023 9:43 PM Age: 87 years old Clinical indication: Stroke-like symptoms; Speech disturbance; Additional info: Slurred speech, L wkness, chest pain, presyncope TECHNIQUE: Imaging protocol: Computed tomographic angiography of the neck with contrast. 3D rendering (Not supervised by radiologist): MIP and/or 3D reconstructed images were created by the technologist. REPORTING DATA: Count of CT and Cardiac NM exams in prior 12 months: This patient has received 0 known CTs and 0 known cardiac nuclear medicine studies in the 12 months prior to the current study. COMPARISON: CT HEAD/BRAIN WO CON 03/10/2023 9:35 PM FINDINGS: Right common carotid artery: Atheromatous plaquing and calcification involving the right common carotid artery without significant stenosis. Right internal carotid artery: No stenosis of the extracranial segment. No dissection or occlusion. Right external carotid artery: Moderate to severe stenosis at the origin of the right external carotid artery. Left common carotid artery: Calcification and plaquing at the left common carotid bifurcation with mild stenosis measuring less than 50%. Left internal carotid artery: Calcification and plaquing at the proximal left ICA. Stenosis measures 60%. Left external carotid artery: Mild stenosis at the origin of the left
--- NOTE | 2023-03-10 21:27 | PC.NURSE ---
in room talking with patient at this time.
--- NOTE | 2023-03-10 21:32 | HMH.EDGENADL ---
Discharge Plan Disposition Patient Disposition: Admitted Condition: Good Clinical Impressions Clinical Impression: Brain TIA, Chest pain Discharge ED Provider: Rakel Soto General Adult HPI General Chief complaint: Neuro Symptoms/Deficit Stated complaint: Chest pain Time Seen by Provider: 03/10/23 21:25 History of Present Illness HPI narrative: This patient is an 87-year-old female with a history of hypertension, anxiety, and mitral valve prolapse presenting to the emergency department for evaluation by EMS. According to EMS, the family had called because the patient was having chest pain. Once they got there, family had told EMS that the patient had had slurred speech. Fingerstick blood glucose was 148 in route and patient did not have slurred speech for EMS. They did not note any significant focal neurologic deficits, and the patient was hypertensive but otherwise normal on cardiac telemetry per EMS. Family arrives and states that they last for with the patient around 6:00 PM. She was normal at that time, and they had left. They are watching her on a camera that they have in her home, and she was eating dinner normally around 6:30 PM. They went to check again around 7 PM, and they noted that it was dark and there. They called her and woke her up, speaking with her and telling her to get up and go take her night medications. She was able to communicate normally at that time, though she sounded groggy. They report that she called them back around 8 PM and said that they needed to get over there. When she called back around 8 PM, she was seen that she did not feel well and she had notable slurred speech. She was very difficult to understand. Once family arrived, they state that she was slumped over in the floor holding her chest saying her chest hurt. They also state that she had very slurred and difficult to understand speech. Her slurred speech resolved, but she continued to be slumped over in an abnormal way for family. Family denies any significant past medical history of head bleeds, stroke, any sort of bleeds, recent surgeries, or other concerns. They note that her only medications are metoprolol, citalopram, and oxazepam which she takes as needed for anxiety. No other concerns noted at this time. Patient denies any concerns or complaints at this time and states that she does not know why she is here, but she is pleasantly confused. Related Data Home Medications Medication Instructions Recorded Confirmed citalopram 10 mg tablet 15 mg PO DAILY Anxiety 09/10/22 03/10/23 metoprolol succinate 50 mg 25 mg PO DAILY Hypertension 09/10/22 03/10/23 tablet,extended release 24 hr oxazepam 10 mg capsule 10 mg PO BID Anxiety 09/10/22 03/10/23 Allergies Allergy/AdvReac Type Severity Reaction Status Date / Time oxytetracycline Allergy Intermediate Unknown Verified 02/01/23 11:06 [From Terramycin with allergy Polymyxin B] reaction Penicillins Allergy Intermediate Rash Verified 02/01/23 11:06 polymyxin B Allergy Intermediate Unknown Verified 02/01/23 11:06 [From Terramycin with allergy Polymyxin B] reaction procaine Allergy Intermediate Hallucinati Verified 02/01/23 11:06 ng Sulfa (Sulfonamide Allergy Intermediate Nausea Verified 02/01/23 11:06 Antibiotics) [facility] Disclaimer: The information contained in this section may have been updated after the patient was seen, as this information can be updated by other users. Medical History Anxiety Depression with anxiety Diverticulosis Hypertension Osteoarthritis Presbycusis of both ears Surgical History History of hysterectomy Family History Other Colon cancer Family history of anemia Family history of diabetes mellitus type II Family history of myocardial infarction Fami
[2023-03-10 21:35] LABS: Basophils # 0.1 K/mm3 (0-0.2); Basophils % 0.5 % (0.1-2.0); Eosinophils # 0.3 K/mm3 (0.0-0.4); Eosinophils % 2.8 % (0.1-12.0); Hematocrit 38.5 % (37.0-47.0); Hemoglobin 12.3 g/dL (12.2-16.2); Lymphocytes # 2.9 K/mm3 (0.7-4.5); Lymphocytes % 32.1 % (10-50); Mean Corpuscular HGB Conc 32.1 g/dL (31.8-35.4); Mean Corpuscular Hemoglobin 27.4 pg (27.0-31.2); Mean Corpuscular Volume 85.4 fl (81-99); Monocytes # 0.6 K/mm3 (0.1-1.0); Monocytes % 6.6 % (1.7-9.3); Neutrophils # 5.2 K/mm3 (1.8-7.8); Neutrophils % 57.9 % (37.0-80.0); Platelet Count 255 K/mm3 (142-424); Red Cell Distribution Width 14.7 % (11.5-17.5)
[2023-03-10 21:40] LABS: Chloride 103 mmol/L (98-107)
[2023-03-10 21:41] LABS: Potassium 4.1 mmoL/L (3.5-5.1); Sodium 134 mmol/L (136-145)
[2023-03-10 21:43] LABS: Alanine Aminotransferase 19 U/L (12-78); Aspartate Amino Transferase 34 U/L (14-36); Blood Urea Nitrogen 19 mg/dl (7-17); Estimated Glomerular Filt Rate 59 ml/min (>60); GFR (African American) 71 ML/MIN (>60)
[2023-03-10 21:44] LABS: Albumin Level 3.9 g/dl (3.5-5.0); Albumin/Globulin Ratio 1.1 (1.1-1.8); Alkaline Phosphatase 63 U/L (38-126); Anion Gap 9.1 mEq/L (5-15); Bilirubin,Total 0.6 mg/dl (0.2-1.3); Calcium 8.8 mg/dl (8.4-10.2); Carbon Dioxide 26 mmol/L (22.0-30.0); Globulin 3.6 g/dL (1.3-3.2); Glucose 149 mg/dl (74-100); Total Protein,Serum 7.5 g/dl (6.3-8.2)
[2023-03-10 21:47] LABS: Activated Partial Thrombo Time 23.1 seconds (22.8-30.6); INR 0.99 (0.9-1.1); Prothrombin Time 10.7 seconds (10.1-12.5)
[2023-03-10 21:56] LABS: VBG Base Excess 0.3 mmol/L (-2.4-2.3); VBG HCO3 24.2 mmol/L (23-30); VBG Oxygen Saturation 88.8 % (50-70); VBG PCO2 35.6 mmol/L (35-51); VBG PH 7.45 mmol/L (7.31-7.41); VBG PO2 52.1 mmol/L (28-40); VBG Total CO2 25.3 mmol/L (23-27)
[2023-03-10 22:11] LABS: Troponin I < 0.01 ng/ml (0.00-0.034)
[2023-03-10 22:12] LABS: Microscopic, Urine URINE MICROSCOPIC (MICROSCOPIC)
[2023-03-10 22:19] LABS: Appearance,Urine CLEAR (Clear); Bilirubin,Urine Negative (Negative); Blood, Urine Negative (Negative); Color,Urine YELLOW (Yellow); Glucose,Urine (UA) Negative (Negative); Ketones,Urine Negative (Negative); Leukocyte Esterase,Urine Negative (Negative); Nitrate,Urine Negative (Negative); Protein,Urine Negative (Negative); Specific Gravity, Urine 1.015 (1.005-1.030); Urobilinogen,Urine 0.2 EU/dl (0.2)
--- NOTE | 2023-03-10 22:54 | PC.NURSE ---
ER MD spoke with hospital medicine regarding admission
--- NOTE | 2023-03-10 22:56 | PC.NURSE ---
OBSERVATION ADMISSION TO 210 WITH DX OF TIA TO SERVICE OF THE HOSPITALIST.
--- NOTE | 2023-03-10 23:19 | EXP.HP ---
History of Present Illness *Admission Date: 03/10/23 *Reason for visit:: TIA *History of present illness: 87-year-old female presented to [facility] ED via EMS for c/o CP and slurred speech. PMHX of hypertension, anxiety, and mitral valve prolapse. Fingerstick blood glucose was 148 in the felid and patient did not demostrate any neurologic deficits. EMS reports hypertension but otherwise normal on cardiac telemetry. Family report LKN was 6 p.m. The patient called the family around 8 PM and stated that she did not feel well and she had notable slurred speech. Once family arrived to pt's house they stated that she was slumped over in the floor holding her chest saying her chest hurt. They also state that she had very slurred and difficult to understand speech. Her slurred speech resolved, but she continued to be slumped over in an abnormal way for family. Family denies any significant past medical history of head bleeds, stroke, any sort of bleeds, recent surgeries, or other concerns. They note that her only medications are metoprolol, citalopram, and oxazepam which she takes as needed for anxiety. Her intial NIH was a 2 in the ED. The pt has left arm and leg weakness. Pt was taken straight to the CT scanner and upon arrival to room the pt's NIH was 0. Her lab work and EKG are unremarkable. 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 She was started on ASA therapy prior to admission. The ED physician consulted the hospitalist team for possible admission for observation of TIA symptoms. The pt arrives to the medical floor with family at bedside. The pt has no reports of weakness. No neurological defects noted. Daughter reports pt has been having left sided facial tingling that goes away with neck massages. The pt does not have a neurologist but does see a chiropractor. The pt will have q 4 hr neuro checks and lipid panel added on for blood work. She is in no acute distress. Daughter reports hx of dementia without medication or doctor follow up. Pt is A X O x [address] [facility] Disclaimer: The information contained in this section may have been updated after the patient was seen, as this information can be updated by other users. Medical History Anxiety Depression with anxiety Diverticulosis Hypertension Osteoarthritis Presbycusis of both ears Surgical History History of hysterectomy Family History Other Colon cancer Family history of anemia Family history of diabetes mellitus type II Family history of myocardial infarction Family history of stroke Social History Smoking Status: Never smoker alcohol intake: never substance use type: denies use current occupational status: retired Travel in the last 8 weeks: None household members: none housing: house lives independently: Yes marital status: service: No senior care: No physical activity: walking frequency: 3-4 times per week duration: 15-30 minutes/day Review of Systems *Cardiovascular Cardiovascular: Reports chest pain *Respiratory Respiratory: Reports system reviewed and no additional complaints, except as documented *Gastrointestinal Gastrointestinal: Reports system reviewed and no additional complaints, except as documented *Genitourinary Genitourinary: Reports system reviewed and no additional complaints, except as documented *Musculoskeletal Musculoskeletal: Reports system reviewed and no additional complaints, except as documented *Neurologic Neurologic: Reports as per HPI, Reports abnormal speech, Reports behavioral changes, Reports localized weakness and Reports memory loss Psychiatric Psychiatric: Reports behavioral changes and Reports memory loss
--- NOTE | 2023-03-10 23:39 | PC.NURSE ---
pt arrived to floor via wheelchair @[id number]
[2023-03-11 00:55] LABS: Troponin I < 0.01 ng/ml (0.00-0.034)
[2023-03-11 03:48] LABS: Troponin I < 0.01 ng/ml (0.00-0.034)
[2023-03-11 04:00] VITALS: BP 150/68; PULSE 71; RESP 18; TEMP 36.9; O2SAT 98; BMI 24.5
--- NOTE | 2023-03-11 05:20 | PC.NURSE ---
Since arriving to the floor the patient has rested in bed. Has been up to the bedside twice to void. Upon 4am neuro check. NIH remains a 0. Patient was AxO x3 equal strength in all 4 extremities.
[2023-03-11 06:13] LABS: Basophils # 0.1 K/mm3 (0-0.2); Basophils % 0.7 % (0.1-2.0); Eosinophils # 0.1 K/mm3 (0.0-0.4); Eosinophils % 0.7 % (0.1-12.0); Hematocrit 36.8 % (37.0-47.0); Lymphocytes # 2.7 K/mm3 (0.7-4.5); Lymphocytes % 31.8 % (10-50); Mean Corpuscular HGB Conc 32.6 g/dL (31.8-35.4); Mean Corpuscular Volume 86.1 fl (81-99); Mean Platelet Volume 8.2 fl (7.4-10.4); Monocytes # 0.7 K/mm3 (0.1-1.0); Monocytes % 8.3 % (1.7-9.3); Neutrophils % 58.6 % (37.0-80.0); Platelet Count 237 K/mm3 (142-424); Red Blood Count 4.27 M/mm3 (4.20-5.40); Red Cell Distribution Width 14.5 % (11.5-17.5); White Blood Count 8.5 K/mm3 (4.8-10.8)
[2023-03-11 06:16] LABS: Chloride 105 mmol/L (98-107); Sodium 138 mmol/L (136-145)
[2023-03-11 06:17] LABS: Potassium 4.3 mmoL/L (3.5-5.1)
[2023-03-11 06:20] LABS: Anion Gap 7.3 mEq/L (5-15); Blood Urea Nitrogen 16 mg/dl (7-17); Calcium 8.9 mg/dl (8.4-10.2); Carbon Dioxide 30 mmol/L (22.0-30.0); Creatinine Clearance Estimated 37 mL/min (50-200); Estimated Glomerular Filt Rate 68 ml/min (>60); GFR (African American) 82 ML/MIN (>60); Glucose 100 mg/dl (74-100)
[2023-03-11 06:33] LABS: Triglycerides 68 mg/dl (30-150); VLDL Cholesterol 14 mg/dL (0-40)
[2023-03-11 06:34] LABS: Chol/HDL Ratio 4.9 (1-3.5); Cholesterol 227 mg/dl (140-200); HDL Cholesterol 46 mg/dl (40-60)
[2023-03-11 06:44] LABS: Direct LDL Cholesterol 136.97 mg/dL (100-129)
[2023-03-11 07:58] VITALS: BP 172/71; PULSE 72; RESP 18; TEMP 36.4; O2SAT 98
[2023-03-11 11:51] VITALS: BP 194/73; PULSE 80; RESP 18; TEMP 36.4; O2SAT 97
--- NOTE | 2023-03-11 13:51 | HMH.OTEV ---
OT Inpatient Evaluation Rehab OT IP Evaluation Start: 03/11/23 11:00 Freq: ONCE Status: Active Protocol: Document 03/11/23 13:43 [facility] (Rec: 03/11/23 13:51 [facility] [id number]) Rehab OT IP Assessment Subjective History Pt oriented x 3 on arrival. Pt agreeable to engage in therapy evaluation. Pt admitted on 03/10/23 due to TIA . Pt is an 87-year-old female presented to [facility] ED via EMS for c/o CP and slurred speech. PMHX of hypertension, anxiety, and mitral valve prolapse. Prior to being in the hosptial, pt lived at home alone. Pt claims she is independent with all ADL such as dressing, bathing, and feeding. Pt also reports she is independent with most IADLs . Her daughter lives next door and assists with heavier household tasks when needed. She uses a rolling walker intermittently. Pt no longer drives. Daughter and son present during therapy evaluation and very supportive . Subjective I am feeling better than I was. Objective Patient Orientation Person,Place,Birthday Upper Extremity Gross ROM WFL Bed Mobility bed mobility-scooting,bed mobility - supine/sit Assist Level Supervision/Stand by Transfer Training Sit/Stand Transfer Assist Level Supervision/Stand by Chair Transfer Ability Supervision/Stand by Chair Transfer Technique Sit to/from Ambulatory Chair Transfer Assistive Devices None Lower Body Dressing Ability Standby Assistance Performing Toilet Hygiene Ability Standby Assistance Overall Commode/Toilet Transfer Ability Standby Assistance Commode/Toilet Transfer Technique Sit to/from Ambulatory Rehab OT IP prob,goals,plan Problems Date of Evaluation: 03/11/23 Rehab Potential Rehab Potential Innapropriate for Skilled Therapy Discharge Plan OT Discharge Plan Pt appears to be at baseline with functional transfers and ADL independence. Pt can
--- NOTE | 2023-03-11 14:11 | EXP.DC.SUM ---
General Admission date:: 03/10/23 Discharge date: 03/11/23 HPI HPI HPI: 87-year-old female presented to [facility] ED via EMS for c/o CP and slurred speech. PMHX of hypertension, anxiety, and mitral valve prolapse. Fingerstick blood glucose was 148 in the felid and patient did not demostrate any neurologic deficits. EMS reports hypertension but otherwise normal on cardiac telemetry. Family report LKN was 6 p.m. The patient called the family around 8 PM and stated that she did not feel well and she had notable slurred speech. Once family arrived to pt's house they stated that she was slumped over in the floor holding her chest saying her chest hurt. They also state that she had very slurred and difficult to understand speech. Her slurred speech resolved, but she continued to be slumped over in an abnormal way for family. Family denies any significant past medical history of head bleeds, stroke, any sort of bleeds, recent surgeries, or other concerns. They note that her only medications are metoprolol, citalopram, and oxazepam which she takes as needed for anxiety. Her intial NIH was a 2 in the ED. The pt has left arm and leg weakness. Pt was taken straight to the CT scanner and upon arrival to room the pt's NIH was 0. Her lab work and EKG are unremarkable. 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 She was started on ASA therapy prior to admission. The ED physician consulted the hospitalist team for possible admission for observation of TIA symptoms. The pt arrives to the medical floor with family at bedside. The pt has no reports of weakness. No neurological defects noted. Daughter reports pt has been having left sided facial tingling that goes away with neck massages. The pt does not have a neurologist but does see a chiropractor. The pt will have q 4 hr neuro checks and lipid panel added on for blood work. She is in no acute distress. Daughter reports hx of dementia without medication or doctor follow up. Pt is A X O x 4 Hospital Course Hospital Course Hospital Course: 87-year-old female presented to [facility] ED via EMS for c/o CP and slurred speech. Fingerstick blood glucose was 148 in the felid and patient did not demostrate any neurologic deficits. EMS reports hypertension but otherwise normal on cardiac telemetry. Family report LKN was 6 p.m. The patient called the family around 8 PM and stated that she did not feel well and she had notable slurred speech. Once family arrived to pt's house they stated that she was slumped over in the floor holding her chest saying her chest hurt. They also state that she had very slurred and difficult to understand speech. Her slurred speech resolved, but she continued to be slumped over in an abnormal way for family. Family denies any significant past medical history of head bleeds, stroke, any sort of bleeds, recent surgeries, or other concerns. They note that her only medications are metoprolol, citalopram, and oxazepam which she takes rarely as needed for anxiety. Her intial NIH was a 2 in the ED. The pt has left arm and leg weakness. Pt was taken straight to the CT scanner and upon arrival to room the pt's NIH was 0. Her lab work and EKG are unremarkable. 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 She was started on ASA therapy prior to admission. Admitted for observation overnight. PT and OT evaluated, patient at baseline level of function. Stable for discharge home. Problems addressed as follows: BRAIN TIA -Last known normal was at 6 PM. Developed slurred speech and presented to the ER with left arm and leg weakness. Deficits resolved during admission. CT was obtained of head along with CTA that revealed stenosis of the right posterior cerebral artery but no jose occlusion. Moderate left MCA stenosis and moderate right MCA M1 stenosis noted. Salazar
--- NOTE | 2023-03-12 13:32 | CARE MANAGER ---
Contacted family related to hospital discharge. They state patient is weak, but doing better. They are aware of taking the ASA and are aware of follow up appointment. Deny any questions or concerns at this time. CINDY Silva
== END 2023-03-11 15:18 | disposition home or self-care (01) ==
LOC: ER 22:55 → 2ND 22:58
PROVIDERS: Nurse Practitioner Critical Care Medicine; Admitting Provider Family Medicine; Emergency Provider Emergency Medicine; PCP Family Medicine; Visit Provider Family Medicine
DX: G45.8 Other transient cerebral ischemic attacks and related syndromes (principal); I10 Essential (primary) hypertension; F41.8 Other specified anxiety disorders; Z79.899 Other long term (current) drug therapy; I34.1 Nonrheumatic mitral (valve) prolapse
CPT/HCPCS: 36415; 70450; 70496; 70498; 71275; 80048; 80053; 80061; 81001; 82803; 84484; 85025; 85610; 85730; 93005; 97166; 99291; G0378; Q9967

== ENCOUNTER → 2023-05-08 08:33 | Outpatient (CLI) | payer MEDICARE, SELFPAY ==
[2023-05-08 19:06] LABS: Basophils % 0.3 % (0.1-2.0); Eosinophils # 0.2 K/mm3 (0.0-0.4); Eosinophils % 2.1 % (0.1-12.0); Hematocrit 38.4 % (37.0-47.0); Hemoglobin 12.8 g/dL (12.2-16.2); Lymphocytes # 2.8 K/mm3 (0.7-4.5); Lymphocytes % 36.2 % (10-50); Mean Corpuscular HGB Conc 33.3 g/dL (31.8-35.4); Mean Corpuscular Hemoglobin 29.2 pg (27.0-31.2); Mean Corpuscular Volume 87.9 fl (81-99); Mean Platelet Volume 9.3 fl (7.4-10.4); Monocytes # 0.6 K/mm3 (0.1-1.0); Monocytes % 7.2 % (1.7-9.3); Neutrophils # 4.2 K/mm3 (1.8-7.8); Neutrophils % 54.1 % (37.0-80.0); Platelet Count 246 K/mm3 (142-424); Red Blood Count 4.36 M/mm3 (4.20-5.40); Red Cell Distribution Width 13.9 % (11.5-17.5); White Blood Count 7.8 K/mm3 (4.8-10.8)
[2023-05-08 20:31] LABS: Chloride 104 mmol/L (98-107); Potassium 4.3 mmoL/L (3.5-5.1); Sodium 137 mmol/L (136-145)
[2023-05-08 20:33] LABS: Alanine Aminotransferase 18 U/L (12-78); Amylase 81 U/L (30-110); Anion Gap 12.3 mEq/L (5-15); Aspartate Amino Transferase 31 U/L (14-36); Blood Urea Nitrogen 19 mg/dl (7-17); Carbon Dioxide 25 mmol/L (22.0-30.0); Estimated Glomerular Filt Rate 52 ml/min (>60); GFR (African American) 63 ML/MIN (>60)
[2023-05-08 20:34] LABS: Albumin Level 4.3 g/dl (3.5-5.0); Albumin/Globulin Ratio 1.3 (1.1-1.8); Alkaline Phosphatase 95 U/L (38-126); Bilirubin,Total 0.7 mg/dl (0.2-1.3); Calcium 9.4 mg/dl (8.4-10.2); Globulin 3.4 g/dL (1.3-3.2); Glucose 84 mg/dl (74-100); Lipase 152 U/L (23-300); Total Protein,Serum 7.7 g/dl (6.3-8.2)
== END ==
PROVIDERS: PCP Family Medicine; Visit Provider Nurse Practitioner
DX: R10.13 Epigastric pain (principal); R13.10 Dysphagia, unspecified
CPT/HCPCS: 80053; 82150; 83690; 85025

== ENCOUNTER → 2023-05-13 21:02 | Outpatient (CLI) | payer MEDICARE, SELFPAY ==
[2023-05-16 10:13] LABS: H. pylori Stool Ag, EIA Negative (Negative)
== END ==
PROVIDERS: PCP Nurse Practitioner; Visit Provider Nurse Practitioner
DX: R10.13 Epigastric pain (principal)
CPT/HCPCS: 87338

== ENCOUNTER 2023-05-20 09:42 | Observation (INO) | payer MEDICARE, SELFPAY ==
[2023-05-20] VITALS (27 sets, daily range): BP systolic 115–205; BP diastolic 53–92; PULSE 68–91; RESP 13–28; TEMP 36.6–36.8; O2SAT 98–100; BMI 25.2; BMI 24.5
--- NOTE | 2023-05-20 10:03 | PC.NURSE ---
Dr. Mesa at bedside
--- NOTE | 2023-05-20 10:27 | CT_ITS ---
FINAL REPORT TECHNIQUE: thin section axial CT with and without IV contrast supplemented with multiplanar 3-D reconstruction of the head. This study was performed with techniques to keep radiation doses as low as reasonably achievable, (ALARA)individualized dose reduction techniques using automated exposure control or adjustment of mA and/or kV according to the patient's size were employed. CLINICAL HISTORY: Intermittent syncope COMPARISON: 03/10/2023 FINDINGS: HEAD CT: The ventricles are normal in size. Moderate changes of white matter low-density consistent with chronic ischemic/gliotic microvascular disease are once again identified. There is no evidence of hemorrhage. No masses are identified. No extra-axial fluid is seen. The sinuses are normal. CTA: There is focal narrowing of 60% of the M1 segment on the left side. Catheter angiography might be helpful for further evaluation. IMPRESSION: Focal narrowing of 60% of the M1 segment on the left side. Catheter angiography might be helpful for further evaluation. Reviewed, Interpreted and Dictated by Moo Mclain MD Transcribed by Jeannine Waterman Authenticated and . [facility]
--- NOTE | 2023-05-20 10:27 | CT_ITS ---
FINAL REPORT TECHNIQUE: Pre-and postcontrast images of the abdomen were performed by computed tomography. Extensive 3-D reconstruction images were performed. A CTA was performed. This study was performed with techniques to keep radiation doses as low as reasonably achievable (ALARA). Individualized dose reduction techniques using automated exposure control or adjustment of mA and/or kV according to the patient''s size were employed. CLINICAL HISTORY: ROSELINE abd pain with radiation to back COMPARISON: 03/10/2023 FINDINGS: ABDOMEN: The lung bases are clear. The liver, spleen, pancreas, and adrenal glands are unremarkable. Bilateral parapelvic cysts are noted, with the kidneys otherwise unremarkable in appearance. No focal mass or free fluid is identified. CTA: The abdominal aorta is proper caliber. The SMA, celiac axis, and EDNA are patent. There is no significant stenosis or calcification. The renal arteries are patent bilaterally. IMPRESSION: Bilateral parapelvic cysts in the kidney. Otherwise unremarkable CTA of the abdomen. PELVIS: There are scattered diverticula present in the descending and the sigmoid colon. No focal mass in the pelvis is visualized. The bladder is incompletely distended. No mass or inflammatory changes present. No free fluid is noted. CTA: No evidence of significant stenosis is noted in the aorta, common iliac, or internal iliac arteries. IMPRESSION: Scattered diverticula in the descending and sigmoid colon without evidence of acute diverticulitis. No significant vascular abnormality is identified. Reviewed, Interpreted and Dictated by Moo Mclain MD Transcribed by Jeannine Waterman Authenticated and [facility]
--- NOTE | 2023-05-20 10:27 | CT_ITS ---
FINAL REPORT CLINICAL HISTORY: ROSELINE abd pain with radiation to back COMPARISON: 03/10/2023 FINDINGS: CTA CHEST FINDINGS: Mediastinal vasculature is adequately opacified. No pulmonary artery filling defects are identified to suggest PE. There is no aortic dissection. There is no axillary adenopathy. The thyroid gland is heterogeneous, similar to the previous CT. There are coarse interstitial opacities noted bilaterally, as well as bibasilar atelectasis and biapical scarring. There are upper lobe ground glass opacities, stable. The heart size is normal. There is no pericardial or pleural effusion. IMPRESSION: Coarse interstitial opacities are present bilaterally, as well as bibasilar atelectasis and biapical scarring. These are essentially unchanged in appearance since the prior CT. Upper lobe ground glass opacities also remain present, unchanged in appearance. Heterogeneous thyroid gland, similar to the prior CT. Reviewed, Interpreted and Dictated by Moo Mclain MD Transcribed by Jeannine Waterman Authenticated and . [facility]
--- NOTE | 2023-05-20 10:27 | CT_ITS ---
FINAL REPORT TECHNIQUE: NASCET technique utilized for stenosis evaluation. CLINICAL HISTORY: Intermittent syncope COMPARISON: 03/10/2023 FINDINGS: RIGHT CAROTID: There is dense calcification at the origin of the right internal carotid artery with approximately 50 to 60% stenosis. LEFT CAROTID: There is a soft plaque on the left side at the carotid bifurcation producing less than 50% luminal diameter stenosis. VERTEBRALS: The vertebral arteries are patent, with a dominant left vertebral artery.. No significant stenosis is present. IMPRESSION: Dense calcification at the origin of the right internal carotid artery with approximately 50 to 60% stenosis, stable. Soft plaque at the origin of the left internal carotid artery producing less than 50% stenosis, stable. Antegrade flow bilateral vertebral arteries. Reviewed, Interpreted and Dictated by Moo Mclain MD Transcribed by Jeannine Waterman Authenticated and [facility]
--- NOTE | 2023-05-20 10:28 | CT_ITS ---
FINAL REPORT TECHNIQUE: multiple axial CT images were performed from the foramen magnum to the vertex without enhancement. CLINICAL HISTORY: Dizziness and intermittent syncope COMPARISON: 03/10/2023 FINDINGS: The ventricles are enlarged. There is diffuse atrophy. There is moderate periventricular white matter change likely related to small vessel disease. This is stable since the prior CT. There is no evidence of hemorrhage. No masses are identified. No extra-axial fluid is seen. The sinuses are normal. IMPRESSION: Moderate atrophy and chronic changes without acute process. These findings are stable since the prior CT of March 2023. Reviewed, Interpreted and Dictated by Moo Mclain MD Transcribed by Jeannine Waterman Authenticated and [facility]
--- NOTE | 2023-05-20 10:38 | ECG_ITS ---
APPROVED REPORT Exam: Resting ECG HR:69 bpm ECG Measurements Heart Rate 69 AXES NC 222 P 75 QRSd 76 QRS 36 QT 390 T 46 QTc 409 Conclusion SINUS RHYTHM WITH FIRST DEGREE AV BLOCK ABNORMAL ECG UNCONFIRMED REPORT Electronically signed by : Iam Stein MD 05/20/2023 19:17:04
[2023-05-20 10:39] LABS: Basophils # 0.1 K/mm3 (0-0.2); Basophils % 0.7 % (0.1-2.0); Eosinophils # 0.2 K/mm3 (0.0-0.4); Eosinophils % 2.3 % (0.1-12.0); Hematocrit 41.5 % (37.0-47.0); Hemoglobin 13.8 g/dL (12.2-16.2); Lymphocytes # 3.8 K/mm3 (0.7-4.5); Lymphocytes % 42.8 % (10-50); Mean Corpuscular HGB Conc 33.4 g/dL (31.8-35.4); Mean Corpuscular Hemoglobin 29.5 pg (27.0-31.2); Mean Corpuscular Volume 88.4 fl (81-99); Mean Platelet Volume 8.5 fl (7.4-10.4); Monocytes # 0.6 K/mm3 (0.1-1.0); Monocytes % 6.2 % (1.7-9.3); Neutrophils # 4.2 K/mm3 (1.8-7.8); Platelet Count 259 K/mm3 (142-424); Red Blood Count 4.69 M/mm3 (4.20-5.40); Red Cell Distribution Width 13.7 % (11.5-17.5); White Blood Count 8.8 K/mm3 (4.8-10.8)
[2023-05-20 10:40] LABS: Chloride 105 mmol/L (98-107); Potassium 3.8 mmoL/L (3.5-5.1); Sodium 138 mmol/L (136-145)
[2023-05-20 10:42] LABS: Alanine Aminotransferase 20 U/L (12-78); Alkaline Phosphatase 94 U/L (38-126); Anion Gap 10.8 mEq/L (5-15); Aspartate Amino Transferase 33 U/L (14-36); Bilirubin,Total 0.8 mg/dl (0.2-1.3); Blood Urea Nitrogen 19 mg/dl (7-17); Carbon Dioxide 26 mmol/L (22.0-30.0); Creatinine Clearance Estimated 35 mL/min (50-200); Estimated Glomerular Filt Rate 47 ml/min (>60); GFR (African American) 57 ML/MIN (>60)
[2023-05-20 10:43] LABS: Albumin Level 4.6 g/dl (3.5-5.0); Albumin/Globulin Ratio 1.2 (1.1-1.8); Calcium 9.3 mg/dl (8.4-10.2); Globulin 3.8 g/dL (1.3-3.2); Glucose 91 mg/dl (74-100); Lipase 139 U/L (23-300); Magnesium 2.2 mg/dl (1.6-2.3); Phosphorous 2.7 mg/dl (2.5-4.5); Total Protein,Serum 8.4 g/dl (6.3-8.2)
[2023-05-20 10:44] LABS: Phosphorous 2.7 mg/dl (2.5-4.5)
--- NOTE | 2023-05-20 10:59 | PC.NURSE ---
pt to ct scan via stretcher.
[2023-05-20 11:00] LABS: T4 (Thyroxine) 11.7 ug/dl (5.53-11.0); Troponin I < 0.01 ng/ml (0.00-0.034)
--- NOTE | 2023-05-20 11:04 | HMH.EDGENADL ---
Discharge Plan Disposition Patient Disposition: Admitted Condition: Fair Prescriptions Prescriptions: No Action oxazepam 10 mg capsule 10 mg PO BIDP PRN (Reason: Anxiety) Qty: 60 0RF metoprolol succinate 50 mg tablet extended release 24 hr 25 mg PO DAILY Qty: 90 3RF citalopram 10 mg tablet 20 mg PO DAILY Qty: 180 3RF pantoprazole [Protonix] 40 mg tablet,delayed release (DR/EC) 40 mg PO DAILY Qty: 90 3RF hyoscyamine sulfate 0.125 mg tablet 0.125 mg PO QID PRN (Reason: diarrhea or abdominal cramping) Qty: 30 0RF aspirin 81 mg Tablet,Delayed Release (Dr/Ec) 162 mg PO DAILY 30 Days Qty: 60 0RF Rx Instructions: continue 81mg daily after completing 1 mo of 162mg daily Referrals Follow up/Referrals: Miriam Chun APRN [Primary Care Provider] - See instructions Clinical Impressions Clinical Impression: Recurrent syncope Discharge ED Provider: Zeus Mesa I General Adult HPI General Chief complaint: Chest Pain Stated complaint: GERD Time Seen by Provider: 05/20/23 09:59 Mode of Arrival: EMS Source of Information: Patient, EMS and Medical Record Limitations: No Limitations Description of Symptoms (Recalled from ER Triage Doc. by RN): Pt c/o GERD and trying to burp . She called EMS to her house this morning d/t concerns of chest pain History of Present Illness HPI narrative: Patient is an 87-year-old female, has a history of prior stroke, dysphagia, hypertension, recent TIA in March who is presenting to the emergency department with progressive decline since March with intermittent episodes of syncope, recurrent belching. History was conducted with the patient as well as the daughter at bedside. She reports that since she had her TIA in March, her symptoms have progressively worsened. She has intermittent spells of lightheadedness, dizziness and will appear to pass out per the daughter. She reports that she has had numerous episodes but does not appear to have any seizure-like activity. She is also had progressive difficulty swallowing, does not eat certain meals anymore because of this difficulty swallowing. She has been recently started on an antacid as well as a GI muscle relaxer . She has not had any improvement in symptoms. She is reporting midepigastric abdominal pain that radiates through to her back. She states that she has had normal urine and stool output. She denies chest pain, shortness of breath, difficulty breathing. Does not have any recent cough, congestion, runny nose, fever. Related Data Previous Rx's Medication Instructions Recorded aspirin 81 mg tablet,delayed 162 mg PO DAILY 30 days #60 tabs 03/11/23 release metoprolol succinate 50 mg 25 mg PO DAILY Hypertension #90 03/21/23 tablet,extended release 24 hr tabs oxazepam 10 mg capsule 10 mg PO BIDP PRN Anxiety #60 caps 03/21/23 citalopram 10 mg tablet 20 mg PO DAILY Anxiety #180 tabs 04/19/23 pantoprazole 40 mg tablet,delayed 40 mg PO DAILY #90 tabs 04/19/23 release (Protonix) hyoscyamine sulfate 0.125 mg tablet 0.125 mg PO QID PRN diarrhea or 05/16/23 abdominal cramping #30 tabs Allergies Allergy/AdvReac Type Severity Reaction Status Date / Time oxytetracycline Allergy Intermediate Unknown Verified 05/08/23 09:44 [From Terramycin with allergy Polymyxin B] reaction Penicillins Allergy Intermediate Rash Verified 05/08/23 09:44 polymyxin B Allergy Intermediate Unknown Verified 05/08/23 09:44 [From Terramycin with allergy Polymyxin B] reaction procaine Allergy Intermediate Hallucinati Verified 05/08/23 09:44 ng Sulfa (Sulfonamide Allergy Intermediate Nausea Verified 05/08/23 09:44 Antibiotics) [facility] Disclaimer: The information contained in this section may have been updated after the patient was seen, as this information can be updated by other users. Medical History (Updated 05/20/23 @ 16:08 by Zeus Mesa MD) Anxiety Depression with anxiety Divert
[2023-05-20 11:12] LABS: Microscopic, Urine URINE MICROSCOPIC (MICROSCOPIC)
[2023-05-20 11:13] LABS: Thyroid Stimulating Hormone 3.05 uIU/mL (0.465-4.68)
[2023-05-20 11:14] LABS: Lactic Acid 1.3 mmol/L (0.7-2.1)
--- NOTE | 2023-05-20 11:31 | ECG_ITS ---
APPROVED REPORT Exam: Resting ECG HR:78 bpm ECG Measurements Heart Rate 78 AXES NM 248 P 76 QRSd 78 QRS 27 QT 392 T 58 QTc 425 Conclusion SINUS RHYTHM WITH FIRST DEGREE AV BLOCK MODERATE ST DEPRESSION [0.05+ mV ST DEPRESSION] ABNORMAL ECG UNCONFIRMED REPORT Electronically signed by : Iam Stein MD 05/20/2023 19:16:49
[2023-05-20 11:37] LABS: Appearance,Urine CLEAR (Clear); Bilirubin,Urine Negative (Negative); Blood, Urine Negative (Negative); Color,Urine YELLOW (Yellow); Glucose,Urine (UA) Negative (Negative); Ketones,Urine Negative (Negative); Leukocyte Esterase,Urine Negative (Negative); Nitrate,Urine Negative (Negative); Protein,Urine Negative (Negative); Urobilinogen,Urine 0.2 EU/dl (0.2)
[2023-05-20 12:39] LABS: Bacteria,Urine Trace /lpf; WBC,Urine Occasional #/hpf (0-3)
--- NOTE | 2023-05-20 13:42 | PC.NURSE ---
Second trop drawn and sent to lab
[2023-05-20 14:29] LABS: Troponin I < 0.01 ng/ml (0.00-0.034)
--- NOTE | 2023-05-20 15:57 | PC.NURSE ---
DR BEAVER SPEAKING WITH [facility]
--- NOTE | 2023-05-20 17:16 | PC.NURSE ---
Dr. Adriana Davison, Hospitalist, with [facility] has accepted the pt. Waiting on bed assignment.
--- NOTE | 2023-05-20 17:18 | PC.NURSE ---
Dr. Mesa called the Hospitalist for interim admission, however he will have to call her back.
--- NOTE | 2023-05-20 17:32 | PC.NURSE ---
supervisor [employer] notified of admission by hospitalist Dr. Pittman while awaiting bed assignment for [facility]
--- NOTE | 2023-05-20 17:55 | PC.NURSE ---
Called report to Brenda WHITE on Med Surg floor
--- NOTE | 2023-05-20 18:09 | PC.NURSE ---
arrived by w/c from ED
--- NOTE | 2023-05-20 21:09 | EXP.HP ---
History of Present Illness *Admission Date: 05/20/23 *Reason for visit:: Syncope *History of present illness: This is a very pleasant 87-year-old female with a past medical history of recent CVA with no residual deficits, hypertension presents emergency department today with complaints of syncopal episode. Daughter at bedside provides collateral and states that since her CVA in March, she has had a progression of generalized weakness, anxiety and hyperventilatory episodes. She also reports episodes of epigastric pain that has debilitated her mother. They describe these epigastric episodes as severe burping and cramping episodes. She reports guttural burping and abdominal cramping that is followed by extreme generalized fatigue episodes that mimic syncopal episodes. Daughter states that she simply just kind of goes out of it and comes right back to . she reports that is similar to what happened today. On arrival to emergency department she was noted to be generally weak and feeling unwell but no focal deficits noted. Otherwise they deny any fever, cough, congestion or chest pain. Emergency department workup mostly unremarkable. CTA head and neck notable for 60% bilateral carotid stenosis with narrowing of the M1 segment. CT chest abdomen pelvis largely unremarkable except for scattered diverticulosis. Due to concerns for neurological event, transfer was initiated by ED provider and has been officially accepted to [facility] but awaiting bed placement. She will be hospitalized here in the interim. Currently stable [facility] Disclaimer: The information contained in this section may have been updated after the patient was seen, as this information can be updated by other users. Medical History (Updated 05/20/23 @ 21:17 by MATHEUS Mchugh) Anxiety Depression with anxiety Diverticulosis Dysphagia Epigastric abdominal pain History of CVA (cerebrovascular accident) Hypertension Osteoarthritis Presbycusis of both ears Surgical History History of hysterectomy Family History Other Colon cancer Family history of anemia Family history of diabetes mellitus type II Family history of myocardial infarction Family history of stroke Social History (Updated 05/20/23 @ 17:53 by Eunice Carrera RN) Smoking Status: Never smoker alcohol intake: never substance use type: denies use current occupational status: retired Travel in the last 8 weeks: None household members: none housing: house lives independently: Yes marital status: service: No longterm: No physical activity: walking frequency: 3-4 times per week duration: 15-30 minutes/day Review of Systems Constitutional Constitutional: Reports system reviewed and no additional complaints, except as documented Eyes Eyes: Reports system reviewed and no additional complaints, except as documented ENT Ears, Nose, Mouth, and Throat: Reports system reviewed and no additional complaints, except as documented *Cardiovascular Cardiovascular: Reports system reviewed and no additional complaints, except as documented *Respiratory Respiratory: Reports system reviewed and no additional complaints, except as documented *Gastrointestinal Gastrointestinal: Reports system reviewed and no additional complaints, except as documented *Genitourinary Genitourinary: Reports system reviewed and no additional complaints, except as documented *Musculoskeletal Musculoskeletal: Reports system reviewed and no additional complaints, except as documented *Neurologic Neurologic: Reports system reviewed and no additional complaints, except as documented Meds Home Medications and Allergies Home Medications Medication Instructions Recorded Confirmed Type metoprolol succinate 50 mg 25 mg PO DAILY Hypertension #90 03/21/23 05/20/23 Rx tabl
[2023-05-21 04:00] VITALS: BP 120/52; PULSE 71; RESP 16; TEMP 36.7; O2SAT 96; BMI 24.8
--- NOTE | 2023-05-21 04:19 | PC.NURSE ---
Pt is alert to self, with moments of confusion. Pt seems pleasant and continues to grunt forcefully stating that it has to come out while C/O pain in upper abdomen that is tender to touch. Pt has rested well this shit and continues to tolerate ambulation to and from the bathroom. Still currently waiting for a bed at [facility] with no indication of transfer as of yet. Pt's daughter remains at bedside. Pt denies needs at this time.
[2023-05-21 07:04] LABS: Basophils % 0.5 % (0.1-2.0); Eosinophils # 0.1 K/mm3 (0.0-0.4); Monocytes # 0.5 K/mm3 (0.1-1.0); Neutrophils # 2.6 K/mm3 (1.8-7.8)
[2023-05-21 07:05] LABS: Chloride 109 mmol/L (98-107); Potassium 4.1 mmoL/L (3.5-5.1); Sodium 134 mmol/L (136-145)
[2023-05-21 07:08] LABS: Anion Gap 5.1 mEq/L (5-15); Blood Urea Nitrogen 15 mg/dl (7-17); Carbon Dioxide 24 mmol/L (22.0-30.0); Creatinine Clearance Estimated 38 mL/min (50-200); Estimated Glomerular Filt Rate 52 ml/min (>60); GFR (African American) 63 ML/MIN (>60)
[2023-05-21 07:09] LABS: Calcium 8.5 mg/dl (8.4-10.2); Chol/HDL Ratio 5.8 (1-3.5); Cholesterol 215 mg/dl (140-200); Glucose 86 mg/dl (74-100); HDL Cholesterol 37 mg/dl (40-60); Triglycerides 76 mg/dl (30-150); VLDL Cholesterol 15 mg/dL (0-40)
[2023-05-21 07:20] LABS: Direct LDL Cholesterol 134.55 mg/dL (100-129)
--- NOTE | 2023-05-21 07:25 | HMH.PHAINT1 ---
Pharmacy Intervention Comments: Med reconciliation completed using external fill history and patient/family interview. Aspirin has been decreased to 81 mg once daily from 162 mg once daily. And, citalopram has increased from 15 mg once daily to 10 mg twice daily. She still has oxazepam and rarely uses it.
[2023-05-21 07:31] VITALS: BP 152/58; PULSE 71; RESP 16; TEMP 36.8; O2SAT 99
[2023-05-21 07:36] LABS: Eosinophils % 2.5 % (0.1-12.0); Hematocrit 33.4 % (37.0-47.0); Hemoglobin 11.5 g/dL (12.2-16.2); Lymphocytes # 2.2 K/mm3 (0.7-4.5); Lymphocytes % 40.6 % (10-50); Mean Corpuscular HGB Conc 34.4 g/dL (31.8-35.4); Mean Corpuscular Hemoglobin 29.5 pg (27.0-31.2); Mean Platelet Volume 8.6 fl (7.4-10.4); Monocytes % 8.7 % (1.7-9.3); Neutrophils % 47.8 % (37.0-80.0); Platelet Count 225 K/mm3 (142-424); Red Blood Count 3.88 M/mm3 (4.20-5.40); Red Cell Distribution Width 13.7 % (11.5-17.5); White Blood Count 5.5 K/mm3 (4.8-10.8)
--- NOTE | 2023-05-21 07:52 | DIET.NUTRFU ---
Addendum entered by Kelsey Palma RD, LD 05/21/23 11:27: Spoke to patient, daughter answered most questions. She blends most of her food up at home, because she is afraid it will get stuck. Request the pureed for lunch from train station server, went ahead and changed diet to pureed. Also has been drinking ensure at home sometimes up to 3x day, started here also. Reviewed weights with daughter and does sound like she has been maintaining wt over last 60 days. Reviewed during rounds and provider feels a sx consult for a scope maybe beneficial. Barium is scheduled for tomorrow. Based on chart and interview her MNA score is 7 and she triggers for severe PCM, notified provider Addendum entered by Kelsey Palma RD, LD 05/21/23 10:17: HISTOLOGICAL ILLUSTRATOR in this morning completing bedside swallow study, now recommending a full barium swallow study. Will continue to follow Original Note: RD reviewed chart, daughter reports 10# loss possibly secondary to swallowing issue. HISTOLOGICAL ILLUSTRATOR ordered. Was here back in September on a [facility] soft ground- spoke to HISTOLOGICAL ILLUSTRATOR and agreed to change to ground until Speech can eval. Wt in September was 79kg, current wt is 61kg, wt in Mar was 63kg. 7# loss in 60 days and 20# loss in 8months. Will follow up on HISTOLOGICAL ILLUSTRATOR recommendations will start supplements for now.
[2023-05-21 08:00] VITALS: O2SAT 98
--- NOTE | 2023-05-21 08:20 | PC.NURSE ---
COURTESY NOTE: morning round completed on pt. pt denies needing assistance at this time. call belen within reach. Harjit SRNA
[2023-05-21 11:39] VITALS: BP 153/61; PULSE 75; RESP 16; TEMP 36.9; O2SAT 97
[2023-05-21 11:44] VITALS: BMI 24.8
--- NOTE | 2023-05-21 12:05 | PC.NURSE ---
COURTESY NOTE: afternoon round completed on pt. pt denies needing assistance at this time. call belen within reach. Girish SRNA
--- NOTE | 2023-05-21 12:46 | HMH.SLDYSPHA ---
Speech & Language Evaluation Speech/Language Dysphagia Evaluation Start: 05/21/23 12:26 Freq: ONCE Status: Active Protocol: Document 05/21/23 12:26 SAMANTA (Rec: 05/21/23 12:46 SAMANTA [id number]) Dysphagia Assess/Goals/Plan Assessment Date of Evaluation: 05/21/23 Evaluation Type Initial Certification Assessment/Problems dysphagia per MD order Does Patient Qualify for Service Yes Qualify/Failure Comment Based on clinical observations made during bedside swallow evaluation, patient/family interview, and MD discussion, pt would benefit from further instrumental testing to assess the oropharyngeal phase of the swallow. Recommendations PHYSICIAN CERTIFICATION: The specified therapy services are required, authorized, and reviewed every 30 days. Pt will be seen # times/week 2 for # weeks 4 Diet Recommendations Pureed Liquid Type Recommendations Normal/Thin SL Swallow Guidelines Alt bite w/sip thru meal, Standard Aspiration Prec.,Eat at slow rate,Reflux precautions Crush Meds Crush all meds Dysphagia Swallow Precautions/Strategies Sitting Upright (90 deg),Chin Tuck,Small Bites and Sips, Alternate Liquids/Solids Additional Consults Recommended Other Comment GI consult Plan Pt/Guardian verbally ack understanding Yes of dx/prognosis/goals G -code Required No Education Instructions provided Discussed CSE results, MD request for further instrumental study and recommended diet with pt/ daughter, nursing, MD, and peoplesoft hr developer all of which expressed understanding. Pt/Caregiver able to recall information Able to recall/restate Reinforcement needed No Speech & Language HPI History Present Illness Description of Patient Problem EVALUATION MANAGER pulled following information from chart review, Patient is an 87-year-old female, has a history of prior stroke, dysphagia, hypertension, recent TIA in March who is presented to the emergency department with progressive decline since March with
[2023-05-21 16:00] VITALS: BP 156/72; PULSE 78; RESP 18; TEMP 36.4; O2SAT 99
--- NOTE | 2023-05-21 19:40 | EXP.ACUTE.PN ---
Subjective *Date: 05/21/23 *Time: 22:41 Interval history: Patient feeling little bit better today. No further episodes since admission. Daughter showed me a video on morning rounds, episodes of dizziness follow extreme episode of retching. Suspicious for vasovagal episode. States that her discomfort is in the epigastric region. Feels like food is getting stuck. Medical Exam Vital signs and Labs for Last 24 Hours: Vital Signs Temp Pulse Resp BP Pulse Ox O2 Del Method 05/21/23 18:28 Room Air 05/21/23 16:00 97.5 F L 78 18 156/72 H 99 Room Air 05/21/23 16:11 Room Air 05/21/23 14:02 Room Air 05/21/23 11:48 Room Air 05/21/23 11:39 98.5 F 75 16 153/61 H 97 Room Air 05/21/23 10:35 Room Air 05/21/23 08:00 98 Room Air 05/21/23 08:21 Room Air 05/21/23 07:31 98.3 F 71 16 152/58 H 99 Room Air 05/21/23 06:37 Room Air 05/21/23 04:00 98.1 F 71 16 120/52 L 96 Room Air 05/21/23 04:35 Room Air 05/21/23 03:00 Room Air 05/21/23 00:42 Room Air 05/20/23 23:00 Room Air 05/20/23 21:00 Room Air 05/20/23 20:00 98 Room Air 05/20/23 19:53 98.0 F 81 16 154/70 H 98 Room Air Intake and Output 05/21/23 05/21/23 05/21/23 07:59 15:59 23:59 Intake Total 720 / 1020 300 / 1020 Output Total 0 / 0 0 / 0 0 / 0 Balance 0 / 1020 720 / 1020 300 / 1020 Intake: Intake, Oral Amount 720 / 720 0 / 720 Intake, Total IV Amount 300 / 300 0.9 % Sodium Chloride 1000ML 1, 300 / 300 000 ml @ 50 mls/hr IV .Q20H [facility] Rx#:[id number] Output: Output, Urine Amount 0 / 0 0 / 0 0 / 0 Other: Number of Unmeasured Voids 1 Weight 61.235 kg 61.23 kg Patient Weight 12/12/23 23:59 Weight 61.23 kg Laboratory Results - last 24 hr 05/21/23 06:44: WBC 5.5 D, RBC 3.88 L, Hgb 11.5 L D, Hct 33.4 L, MCV 86.0, MCH 29.5, MCHC 34.4, RDW 13.7, Plt Count 225, MPV 8.6, Neut % (Auto) 47.8, Lymph % (Auto) 40.6, [place] % (Auto) 8.7, Eos % (Auto) 2.5, Baso % (Auto) 0.5, Neut # (Auto) 2.6, Lymph # (Auto) 2.2, [place] # (Auto) 0.5, Eos # (Auto) 0.1, Baso # (Auto) 0.0, Sodium 134 L, Potassium 4.1, Chloride 109 H, Carbon Dioxide 24, Anion Gap 5.1, BUN 15, Creatinine 1.00, Estimated Creat Clear 38, Estimated GFR 52 L, Est GFR ( Amer) 63, Glucose 86, Calcium 8.5, Triglycerides 76, Cholesterol 215 H, LDL Cholesterol Direct 134.55 H, VLDL Cholesterol 15, HDL Cholesterol 37 L, Cholesterol/HDL Ratio 5.8 H I & O for Labs for Last 24 Hours: Intake & Output 05/18/23 05/19/23 05/20/23 05/21/23 23:59 23:59 23:59 23:59 Intake Total 1120 / 1120 1020 / 1020 Output Total 0 / 0 0 / 0 Balance 1120 / 1120 1020 / 1020 Weight 60.895 kg 61.23 kg Constitutional: Present no acute distress, average body habitus, chronically ill appearing and cooperative Head: Present atraumatic and normocephalic ENT: Present normal exam Neck: Present normal inspection Respiratory: Present normal respiratory effort; Absent rhonchi, wheezes or crackles Cardiac: Present Reg Rate and Rhythm GI: Present soft, tenderness (mild epigastric) and normal bowel sounds; Absent distention Extremities: Present normal inspection and full ROM Skin: Present intact; Absent erythema Neuro: Present Grossly Intact, alert, awake, oriented x 3 and moves all extremities Assessment and Plan *Assessment and plan (1) Recurrent syncope: Status: Acute Category: Medical Code(s): R55 - Syncope and collapse (2) Epigastric abdominal pain: Status: Acute Category: Medical Code(s): R10.13 - Epigastric pain (3) Hypertension: Status: Chronic Category: Medical Code(s): I10 - Essential (primary) hypertension (4) Depression with anxiety: Status: Chronic Category: Medical Code(s): F41.8 - Other specified anxiety disorders (5) Carotid stenosis: Status: Acute Category: Medical Code(s): I65.29 - Occlus
[2023-05-21 20:00] VITALS: BP 167/99; BP 177/74; PULSE 74; RESP 20; TEMP 36.8; O2SAT 98
[2023-05-22] VITALS (7 sets, daily range): BP systolic 140–195; BP diastolic 60–75; PULSE 63–85; RESP 17–20; TEMP 36.6–36.7; O2SAT 98–100; BMI 25.9
--- NOTE | 2023-05-22 01:48 | PC.NURSE ---
Pt having moments of confusion and removed IV from left right AC new IV placed in left forearm pt removed IV from left forearm, states that it is bothering her in her sleep. Notified DON Soto, advised to leave IV out until mold shop supervisor due to confusion and put back in before procedure scheduled for later this afternoon.
--- NOTE | 2023-05-22 04:45 | INFXCTL.NOTE ---
Pt is alert to self at times and has had multiple episodes of anxiety and confusion this shift. Pt has pulled out/removed 2 IVs this shift and has had medication for anxiety. Pt BP remains elevated @ 195/70, DON Soto notified and aware, carvedilol 12.5 mg given. Pt seems to be resting well at this time. Pt daughter remains at bedside. Pt denies pain and other needs at this time
[2023-05-22 08:15] LABS: Chloride 109 mmol/L (98-107); Potassium 4.1 mmoL/L (3.5-5.1); Sodium 135 mmol/L (136-145)
[2023-05-22 08:18] LABS: Alanine Aminotransferase 13 U/L (12-78); Albumin Level 3.6 g/dl (3.5-5.0); Albumin/Globulin Ratio 1.2 (1.1-1.8); Alkaline Phosphatase 65 U/L (38-126); Anion Gap 7.1 mEq/L (5-15); Aspartate Amino Transferase 29 U/L (14-36); Bilirubin,Total 0.7 mg/dl (0.2-1.3); Blood Urea Nitrogen 14 mg/dl (7-17); Calcium 8.4 mg/dl (8.4-10.2); Carbon Dioxide 23 mmol/L (22.0-30.0); Creatinine Clearance Estimated 39 mL/min (50-200); Estimated Glomerular Filt Rate 59 ml/min (>60); GFR (African American) 71 ML/MIN (>60); Glucose 103 mg/dl (74-100); Total Protein,Serum 6.6 g/dl (6.3-8.2)
[2023-05-22 09:25] LABS: Basophils % 0.8 % (0.1-2.0); Eosinophils # 0.3 K/mm3 (0.0-0.4); Eosinophils % 4.7 % (0.1-12.0); Hematocrit 35.5 % (37.0-47.0); Hemoglobin 12.1 g/dL (12.2-16.2); Lymphocytes # 1.9 K/mm3 (0.7-4.5); Lymphocytes % 34.8 % (10-50); Mean Corpuscular HGB Conc 34.2 g/dL (31.8-35.4); Mean Corpuscular Hemoglobin 30.1 pg (27.0-31.2); Mean Corpuscular Volume 87.9 fl (81-99); Mean Platelet Volume 8.7 fl (7.4-10.4); Monocytes # 0.4 K/mm3 (0.1-1.0); Monocytes % 6.7 % (1.7-9.3); Neutrophils # 2.9 K/mm3 (1.8-7.8); Platelet Count 222 K/mm3 (142-424); Red Blood Count 4.04 M/mm3 (4.20-5.40); Red Cell Distribution Width 13.5 % (11.5-17.5); White Blood Count 5.5 K/mm3 (4.8-10.8)
--- NOTE | 2023-05-22 09:58 | FL_ITS ---
FINAL REPORT CLINICAL HISTORY: GERD, mid epigastric pain fluoro time: 1.16 DAP: 679.69 FINDINGS: BARIUM SWALLOW HISTORY: Dysphagia, GERD. TECHNIQUE: The patient ingested barium contrast. Spot and overhead films were performed. A total of 46 images were saved. FINDINGS: Examination is limited due to the patient's condition. The esophagus is grossly unremarkable. There is no gastroesophageal reflux demonstrated. No mucosal defects are seen. There is mild esophageal dysmotility. No changes of esophagitis are evident. Patient could not swallow the 13 mm barium tablet. FLUOROSCOPY TIME: 1 minute 16 seconds Radiation exposure in Total DAP: 679.69 uGym2 IMPRESSION: Limited examination. Mild esophageal dysmotility. Otherwise, no gross abnormality identified. Reviewed, Interpreted and Dictated by Moo Mclain MD Transcribed by Yasmine Hoover PA-C Authenticated and [facility]
--- NOTE | 2023-05-22 13:49 | CARE MANAGER ---
Made referral to [facility] in [place]. They will contact patient with appt.
--- NOTE | 2023-05-22 16:55 | EXP.ACUTE.PN ---
Subjective *Date: 05/22/23 *Time: 16:55 Interval history: Patient did not sleep well last night, had some sundowning. Stable on room air today. Blood pressure better controlled this morning at 144/60. Denies pain or ornis of breath. Pleasant on interview. Daughter at bedside. Modified barium obtained this morning. Medical Exam Vital signs and Labs for Last 24 Hours: Vital Signs Temp Pulse Resp BP BP Pulse Ox O2 Del Method 05/22/23 16:00 98.1 F 76 17 165/64 H 98 Room Air 05/22/23 14:47 Room Air 05/22/23 13:00 Room Air 05/22/23 08:00 Room Air 05/22/23 11:00 Room Air 05/22/23 09:00 Room Air 05/22/23 08:00 98 F 69 18 144/60 H 98 Room Air 05/22/23 04:00 97.8 F 81 20 192/75 H 99 Room Air 05/22/23 04:29 195/70 H 05/22/23 04:43 Room Air 05/22/23 07:00 Room Air 05/22/23 02:34 Room Air 05/22/23 01:00 Room Air 05/21/23 23:00 Room Air 05/22/23 00:00 97.8 F 63 20 152/70 H 99 Room Air 05/21/23 21:00 Room Air 05/21/23 20:00 Room Air 05/21/23 20:00 98.3 F 74 20 177/74 H 167/99 H 98 Room Air 05/21/23 18:28 Room Air Intake and Output 05/22/23 05/22/23 05/22/23 07:59 15:59 23:59 Intake Total 120 / 120 0 / 120 Output Total 0 / 0 0 / 0 0 / 0 Balance 120 / 120 0 / 120 0 / 120 Intake: Intake, Oral Amount 120 / 120 0 / 120 Output: Output, Urine Amount 0 / 0 0 / 0 0 / 0 Other: Number of Voids 0 0 Number of Unmeasured Voids 2 Weight 64.07 kg Patient Weight 05/22/23 23:59 Weight 64.07 kg Laboratory Results - last 24 hr 05/22/23 07:47: Sodium 135 L, Potassium 4.1, Chloride 109 H, Carbon Dioxide 23, Anion Gap 7.1, BUN 14, Creatinine 0.90, Estimated Creat Clear 39, Estimated GFR 59, Est GFR ( Amer) 71, Glucose 103 H, Calcium 8.4, Magnesium 2.0, Total Bilirubin 0.7, AST 29, ALT 13 D, Alkaline Phosphatase 65, Total Protein 6.6, Albumin 3.6, Globulin 3.0, Albumin/Globulin Ratio 1.2 05/22/23 09:00: WBC 5.5, RBC 4.04 L, Hgb 12.1 L, Hct 35.5 L, MCV 87.9, MCH 30.1, MCHC 34.2, RDW 13.5, Plt Count 222, MPV 8.7, Neut % (Auto) 53.0, Lymph % (Auto) 34.8, [place] % (Auto) 6.7, Eos % (Auto) 4.7, Baso % (Auto) 0.8, Neut # (Auto) 2.9, Lymph # (Auto) 1.9, [place] # (Auto) 0.4, Eos # (Auto) 0.3, Baso # (Auto) 0.0 I & O for Labs for Last 24 Hours: Intake & Output 05/19/23 05/20/23 05/21/23 05/22/23 23:59 23:59 23:59 23:59 Intake Total 1120 / 1120 1020 / 1140 120 / 120 Output Total 0 / 0 0 / 0 0 / 0 Balance 1120 / 1120 1020 / 1140 120 / 120 Weight 60.895 kg 61.23 kg 64.07 kg Constitutional: Present no acute distress, average body habitus, chronically ill appearing and cooperative Head: Present atraumatic and normocephalic ENT: Present normal exam Neck: Present normal inspection Respiratory: Present normal respiratory effort; Absent rhonchi, wheezes or crackles Cardiac: Present Reg Rate and Rhythm GI: Present soft, tenderness (mild epigastric) and normal bowel sounds; Absent distention Extremities: Present normal inspection and full ROM Skin: Present intact; Absent erythema Neuro: Present Grossly Intact, alert, awake and moves all extremities Assessment and Plan *Assessment and plan (1) Recurrent syncope: Status: Acute Category: Medical Code(s): R55 - Syncope and collapse (2) Dysphagia: Status: Acute Category: Medical Code(s): R13.10 - Dysphagia, unspecified (3) Epigastric abdominal pain: Status: Acute Category: Medical Code(s): R10.13 - Epigastric pain (4) Hypertension: Status: Chronic Category: Medical Code(s): I10 - Essential (primary) hypertension (5) Depression with anxiety: Status: Chronic Category: Medical Code(s): F41.8 - Other specified anxiety disorders (6) Carotid stenosis: Status: Acute Category: Medical Code(s): I65.29 - Occlusion and stenosi
--- NOTE | 2023-05-22 22:47 | PC.NURSE ---
PATIENT HAVING ESOPHAGEAL SPASMS. MEDICATED WITH BENTYL 10 MG IM RGM PER ORDER DORIAN RENTERIA NP. WILL BE NPO TIL FURTHER NOTICE.
--- NOTE | 2023-05-23 01:15 | PC.NURSE ---
PATIENT REQUESTED AND RECEIVED A HEATING PAD FOR HER SPASMSBETWEEN HER SHOULDER BLAGED.
[2023-05-23 04:00] VITALS: BP 161/66; PULSE 81; RESP 18; TEMP 37; O2SAT 96; BMI 25.7
--- NOTE | 2023-05-23 04:23 | PC.NURSE ---
HAS BEEN AWAKE MOST OF THE NIGHT. C/O DIFFICULTY SWALLOWING. NPO. K PAd to posterior shoulders. no iv access. doctor aware. grand daughter at bedside.
[2023-05-23 07:27] LABS: Chloride 107 mmol/L (98-107); Potassium 3.9 mmoL/L (3.5-5.1); Sodium 136 mmol/L (136-145)
[2023-05-23 07:30] LABS: Alanine Aminotransferase 18 U/L (12-78); Albumin Level 3.5 g/dl (3.5-5.0); Albumin/Globulin Ratio 1.2 (1.1-1.8); Alkaline Phosphatase 63 U/L (38-126); Anion Gap 7.9 mEq/L (5-15); Aspartate Amino Transferase 28 U/L (14-36); Bilirubin,Total 0.6 mg/dl (0.2-1.3); Blood Urea Nitrogen 16 mg/dl (7-17); Calcium 8.6 mg/dl (8.4-10.2); Carbon Dioxide 25 mmol/L (22.0-30.0); Creatinine Clearance Estimated 39 mL/min (50-200); Estimated Glomerular Filt Rate 52 ml/min (>60); GFR (African American) 63 ML/MIN (>60); Globulin 2.9 g/dL (1.3-3.2); Glucose 92 mg/dl (74-100); Total Protein,Serum 6.4 g/dl (6.3-8.2)
[2023-05-23 07:43] LABS: Basophils % 0.3 % (0.1-2.0); Eosinophils # 0.3 K/mm3 (0.0-0.4); Eosinophils % 5.1 % (0.1-12.0); Hematocrit 32.1 % (37.0-47.0); Lymphocytes # 2.1 K/mm3 (0.7-4.5); Lymphocytes % 33.5 % (10-50); Mean Corpuscular HGB Conc 33.6 g/dL (31.8-35.4); Mean Corpuscular Hemoglobin 29.9 pg (27.0-31.2); Mean Corpuscular Volume 88.9 fl (81-99); Mean Platelet Volume 8.8 fl (7.4-10.4); Monocytes # 0.5 K/mm3 (0.1-1.0); Monocytes % 7.9 % (1.7-9.3); Neutrophils # 3.3 K/mm3 (1.8-7.8); Neutrophils % 53.2 % (37.0-80.0); Platelet Count 217 K/mm3 (142-424); Red Blood Count 3.61 M/mm3 (4.20-5.40); Red Cell Distribution Width 13.6 % (11.5-17.5); White Blood Count 6.2 K/mm3 (4.8-10.8)
[2023-05-23 07:49] VITALS: BP 146/75; PULSE 80; RESP 18; TEMP 36.7; O2SAT 97
[2023-05-23 07:54] LABS: Hemoglobin 10.8 g/dL (12.2-16.2)
[2023-05-23 08:00] VITALS: O2SAT 98
--- NOTE | 2023-05-23 15:53 | EXP.DC.SUM ---
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 Daughter at bedside provides collateral and states that since her CVA in March, she has had a progression of generalized weakness, anxiety and hyperventilatory episodes. She also reports episodes of epigastric pain that has debilitated her mother. They describe these epigastric episodes as severe burping and cramping episodes. She reports guttural burping and abdominal cramping that is followed by extreme generalized fatigue episodes that mimic syncopal episodes. Daughter states that she simply just kind of goes out of it and comes right back to . she reports that is similar to what happened today. On arrival to emergency department she was noted to be generally weak and feeling unwell but no focal deficits noted. Otherwise they deny any fever, cough, congestion or chest pain. Emergency department workup mostly unremarkable. CTA head and neck notable for 60% bilateral carotid stenosis with narrowing of the M1 segment. CT chest abdomen pelvis largely unremarkable except for scattered diverticulosis. Due to concerns for neurological event, transfer was initiated by ED provider and has been officially accepted to [facility] but awaiting bed placement. She will be hospitalized here in the interim. Currently stable Hospital Course Hospital Course Hospital Course: Ms. Smith is an 87 yo F with recurrent episodes of syncope/near syncope. Episodes preceded by retching. Suspicious for vasovagal events. Speech consulted, appreciate their recommendations. Patient describes symptoms suspicious for achalasia or hiatal hernia. Complains of sensation of food getting stuck and trying to get it up prior to having her dizzy spells. Modified barium obtained showing narrowing that then relaxed concerning for esophageal spasm. Patient referred to GI as outpatient for further management. Tolerating p.o. intake with stable labs. Hemodynamically stable and meeting criteria for discharge home. No focal neurologic deficits or other syncopal events during admission. Problems addressed as follows: Recurrent syncope -Patient had no further episodes after admission. Speech evaluated patient and recommended modified barium swallow. Barium swallow showed concern for esophageal spasm. Given that she had no further episodes of syncope or dizziness, did not necessitate transfer. Patient's presentation most consistent with vasovagal events secondary to her retching and esophageal findings. Epigastric pain Dysphagia -Initiated on Carafate, Protonix, Bentyl. Modified barium showed spasm. Will refer to GI for outpatient evaluation. No jose blockage or aclasia. Continue liquid diet or will chopped foods. Patient tolerating good p.o. intake. Stable for discharge home with outpatient referral placed. Carotid stenosis: CTA with bilateral 60% stenosis and M1 segment narrowing, low suspicion for clinical significance in her current symptoms. Most consistent with vasovagal syncope. Depression and anxiety: continue home citalopram Hypertension: Trans and to carvedilol, continue coreg 12.5mg BID, goal BP <140/90 Patient remained stable over the next 24 hours, referred to GI as outpatient. All questions answered with family. Spent 40 minutes in discharge counseling, documentation, and direct care with patient. Exam Data for Last 24 hours Vital signs and Labs for Last 24 Hours: Temp Pulse Resp BP Pulse Ox O2 Del Method 98.0 F 80 18 146/75 H 98 Room Air 05/23/23 07:49 05/23/23 07:49 05/23/23 07:49 05/23/23 07:49 05/23/23 08:00 05/23/23 15:00 Laboratory Results - last 24 hr 05/23/23 06:50: WBC 6.2, RBC 3.61 L, Hgb 10.8 L D, Hct 32.1 L, MCV 88.9, MCH 29.9, MCHC 33.6, RDW 13.6, Plt Cou
--- NOTE | 2023-05-24 11:44 | CARE MANAGER ---
Spoke with patient's daughter related to hospital discharge. Have all medications and do have a question about a medicine that says it can effect the absorption of other medications. She is going to call pharmacy and discuss it. They deny any other questions or concerns and are aware of follow up appointments. CINDY Silva
== END 2023-05-23 15:45 | disposition home or self-care (01) ==
LOC: ER 17:24 → 2ND 17:41
PROVIDERS: Internal Medicine Adolescent Medicine; Nurse Practitioner Acute Care; Admitting Provider Internal Medicine; Emergency Provider Emergency Medicine; PCP Nurse Practitioner; Visit Provider Internal Medicine
DX: R55 Syncope and collapse (principal); I65.23 Occlusion and stenosis of bilateral carotid arteries; R10.13 Epigastric pain; I10 Essential (primary) hypertension; F41.8 Other specified anxiety disorders; E43 Unspecified severe protein-calorie malnutrition; R13.10 Dysphagia, unspecified
CPT/HCPCS: 36415; 70450; 70496; 70498; 71275; 74174; 74220; 80048; 80053; 80061; 81001; 83605; 83690; 83735; 84100; 84436; 84443; 84484; 85025; 92610; 93005; 99285; G0378; J2405; Q9967

== ENCOUNTER 2023-07-31 09:03 | Emergency (ER) | payer MEDICARE, SELFPAY ==
[2023-07-31 09:04] VITALS: BP 186/73; PULSE 74; RESP 15; TEMP 36.6; O2SAT 100; BMI 25.0
[2023-07-31 09:10] VITALS: BP 186/73; PULSE 73; O2SAT 100
--- NOTE | 2023-07-31 09:13 | ECG_ITS ---
APPROVED REPORT Exam: Resting ECG HR:72 bpm ECG Measurements Heart Rate 72 AXES OR 224 P 80 QRSd 78 QRS 57 QT 386 T 52 QTc 410 Conclusion SINUS RHYTHM WITH FIRST DEGREE AV BLOCK MODERATE ST DEPRESSION [0.05+ mV ST DEPRESSION] ABNORMAL ECG UNCONFIRMED REPORT Electronically signed by : Iam Stein MD 07/31/2023 20:35:08
--- NOTE | 2023-07-31 09:36 | XR_ITS ---
FINAL REPORT CLINICAL HISTORY: Precordial chest pain FINDINGS: A single view of the chest was obtained. The heart is normal in size. The mediastinum is unremarkable. There are mild chronic changes in both lungs. There is no pleural effusion. There is no pneumothorax. There is no acute osseous abnormality. IMPRESSION: No acute cardiopulmonary process. Reviewed, Interpreted and Dictated by Moo Mclain MD Transcribed by Angeles Deras Authenticated and [facility]
[2023-07-31 09:44] LABS: Basophils % 0.3 % (0.1-2.0); Chloride 106 mmol/L (98-107); Eosinophils # 0.2 K/mm3 (0.0-0.4); Eosinophils % 2.7 % (0.1-12.0); Hematocrit 38.4 % (37.0-47.0); Lymphocytes # 2.7 K/mm3 (0.7-4.5); Lymphocytes % 38.9 % (10-50); Mean Corpuscular HGB Conc 33.9 g/dL (31.8-35.4); Mean Corpuscular Hemoglobin 30.8 pg (27.0-31.2); Mean Platelet Volume 7.5 fl (7.4-10.4); Monocytes # 0.5 K/mm3 (0.1-1.0); Monocytes % 7.6 % (1.7-9.3); Neutrophils # 3.5 K/mm3 (1.8-7.8); Neutrophils % 50.5 % (37.0-80.0); Platelet Count 250 K/mm3 (142-424); Potassium 4.1 mmoL/L (3.5-5.1); Red Blood Count 4.22 M/mm3 (4.20-5.40); Red Cell Distribution Width 13.4 % (11.5-17.5); Sodium 138 mmol/L (136-145)
[2023-07-31 09:46] LABS: Blood Urea Nitrogen 26 mg/dl (7-17)
[2023-07-31 09:47] LABS: Alanine Aminotransferase 21 U/L (12-78); Albumin Level 4.1 g/dl (3.5-5.0); Albumin/Globulin Ratio 1.2 (1.1-1.8); Alkaline Phosphatase 105 U/L (38-126); Anion Gap 9.1 mEq/L (5-15); Aspartate Amino Transferase 31 U/L (14-36); Bilirubin,Total 0.7 mg/dl (0.2-1.3); Calcium 9.4 mg/dl (8.4-10.2); Carbon Dioxide 27 mmol/L (22.0-30.0); Creatinine Clearance Estimated 38 mL/min (50-200); Estimated Glomerular Filt Rate 47 ml/min (>60); GFR (African American) 57 ML/MIN (>60); Globulin 3.5 g/dL (1.3-3.2); Glucose 85 mg/dl (74-100); Total Protein,Serum 7.6 g/dl (6.3-8.2)
--- NOTE | 2023-07-31 09:53 | HMH.EDCP ---
Discharge Plan Disposition Patient Disposition: Home, Self-Care Prescriptions Prescriptions: New clopidogrel 75 mg tablet 75 mg PO DAILY Qty: 30 3RF atorvastatin 40 mg tablet 40 mg PO DAILY Qty: 30 3RF No Action buspirone 10 mg tablet 5 mg PO TID Qty: 60 2RF donepezil 5 mg tablet 5 mg PO HS Qty: 30 2RF dicyclomine 10 mg capsule 10 mg PO BID 30 Days Qty: 60 0RF oxazepam 10 mg capsule 10 mg PO BIDP PRN (Reason: Anxiety) Qty: 60 0RF carvedilol 12.5 mg tablet See Rx Instructions .ROUTE .COMPLEX Qty: 60 0RF Dose Instruction: TAKE 1 TABLET BY MOUTH TWICE DAILY Rx Instructions: TAKE 1 TABLET BY MOUTH TWICE DAILY citalopram 10 mg tablet 10 mg PO BID Patient Comments: TAKE 1.5 TABLETS BY MOUTH ONCE DAILY FOR ANXIETY. aspirin 81 mg Tablet,Delayed Release (Dr/Ec) 81 mg PO DAILY polyethylene glycol 3350 [Miralax] 17 gram Powder In Packet 17 g PO BID 30 Days Qty: 578 0RF pantoprazole [Protonix] 40 mg tablet,delayed release (DR/EC) 40 mg PO DAILY 90 Days Qty: 90 0RF Referrals Follow up/Referrals: Provider,Referral, MD [Referring] - See instructions Activity Restrictions/Add. Instructions Additional Instructions/Restrictions: Follow-up with Dr. Parra neurosurgery from [facility] in [address] Parra Neurosurgery Address [address] [place] [address], [address] [place] [address] Phone Call: [phone] Tell them you were seen seen in the [facility] emergency department, diagnosed with symptomatic left M1 stenosis. Dr. Parra recommended aspirin, Plavix, atorvastatin daily and follow-up. Call your family doctor to establish care for this visit to the emergency department and schedule follow-up within 48 hours to ensure improvement. If you have any worsening of your condition or any other concerning signs or symptoms, return to the emergency department or your primary care doctor for further evaluation. Clinical Impressions Clinical Impression: Asymptomatic stenosis of intracranial artery, Brain TIA Discharge ED Provider: Nhan Rodriguez General Chief Complaint: Chest Pain Stated Complaint: CP Time Seen by Provider: 07/31/23 09:10 Mode of Arrival: EMS Source of Information: Patient, Relative and EMS Limitations: Altered Mental Status Description of Symptoms (Recalled from ER Triage Doc. by RN): pt presents to ED via EMS for chest pain. pt does have dementia and is confused at baseline. pt reports she is unaware of why she come to the ED but does have some facial numbness. pts daughter at bedside reports pt reports chest pain this am radiating into left shoulder and neck. pt denies symptoms at time of triage. History of Present Illness HPI narrative: 87-year-old female history of hypertension, hyperlipidemia, anxiety, dementia, CVA currently on daily aspirin presenting with chest pain. Patient daughter is providing most of history at bedside because patient does not remember the encounter. Patient's daughter states patient was at home and she currently lives alone. She called her daughter stating that she did not feel well and was complaining of chest pain. She seemed clammy, pale, as if she was not feeling well. Patient's daughter gave her as needed oxazepam, but this did not help symptoms. EMS was called and patient was brought to the emergency department for further evaluation. Patient unable to contribute to history Related Data Home Medications Medication Instructions Recorded Confirmed aspirin 81 mg tablet,delayed 81 mg PO DAILY 05/21/23 07/16/23 release citalopram 10 mg tablet 10 mg PO BID Anxiety 05/21/23 07/16/23 Previous Rx's Medication Instructions Recorded pantoprazole 40 mg tablet,delayed 40 mg PO DAILY 90 days #90 tabs 05/23/23 release (Protonix) polyethylene glycol 3350 17 gram 17 g PO BID 30 days #578 grams 05/23/23 oral powder packet (Miralax) oxazepam 10 mg capsule 10 mg PO BIDP PRN Anxiety #60 caps 07/05/23 buspirone 10 mg tablet 5 mg PO TID anxiety #60 tabs 07/16/23 dicyclomine 10 mg capsule 10 mg PO BID 30 days #60 caps 07/16/23 donepezil 5 mg tablet 5 mg PO HS #30 tabs 07/16/23 carvedilol 12.5 mg tablet See Rx Instructions .Route 07/29/23 .COMPLEX #60 tabs atorvastatin 40 mg tablet 40 mg PO DAILY #30 tabs 07/31/23 clopidogrel 75 mg tablet 75 mg PO DAILY #30 tabs 07/31/23 Allergies Allergy/AdvReac Type Severity Reaction Status Date / Time oxytetracycline Allergy Intermediate Unknown Verified 07/16/23 15:41 [From Terramycin with allergy Polymyxin B] reaction Penicillins Allergy Intermediate Rash Verified 07/16/23 15:41 polymyxin B Allergy Intermediate Unknown Verified 07/16/23 15:41 [From Terramycin with allergy Polymyxin B] reaction procaine Allergy Intermediate Hallucinati Verified 07/16/23 15:41 ng Sulfa (Sulfonamide Allergy Intermediate Nausea Verified 07/16/23 15:41 Antibiotics) [facility] Disclaimer: The information contained in this section may have been updated after the patient was seen, as this information can be updated by other users. Medical History (Updated 07/31/23 @ 14:19 by Nhan Rodriguez MD) Anxiety Brain TIA Dementia Depression with anxiety Diverticulosis Dysphagia Epigastric abdominal pain History of CVA (cerebrovascular accident) Hypertension Osteoarthritis Presbycusis of both ears Surgical History History of hysterectomy Family History Other Colon cancer Family history of anemia Family history of diabetes mellitus type II Family history of myocardial infarction Family history of stroke Social History Smoking Status: Never smoker alcohol intake: never substance use type: denies use current occupational status: retired Travel in the last 8 weeks: None household members: none housing: house lives independently: Yes marital status: service: No jail: No physical activity: walking frequency: 3-4 times per week duration: 15-30 minutes/day ROS Obtained: Yes All systems reviewed & no additional complaints except as documented Physical Exam General General appearance: alert Neck Neck exam: Present full ROM and trachea midline Chest Chest inspection: Present normal inspection and symmetric chest wall rise Respiratory Respiratory exam: Present normal lung sounds bilaterally; Absent respiratory distress, wheezes, stridor, accessory muscle use or prolonged expiratory phase Cardiovascular Cardiovascular exam: Present regular rate and normal rhythm Abdominal Exam Abdominal exam: Present soft and tenderness; Absent distention, guarding, rebound or rigidity Abdominal tenderness: Present suprapubic and mild Extremities Exam Extremities exam: Absent edema Neurological Exam Neurological exam: Present alert and CN II-XII intact; Absent motor sensory deficit Skin Skin exam: Present warm and dry; Absent cyanosis, diaphoresis or pallor HEART Score HEART Score HEART Score assessment performed?: Yes History (anamnesis): Slightly suspicious ECG: Non-specific disturbance Age: >65 years Risk factors: 3 or more risk factors Troponin: </= normal limit HEART Score: 5 Critical Care Critical Care Time Critical Care Time: No Medical Decision Making Medical Records Medical records reviewed: Yes I reviewed the patient's medical records. Yousif Inquiry Pt receiving controlled substance: No Yousif was queried for this patient: No Vital Signs Vital Signs: 07/31/23 09:04 07/31/23 09:10 Temperature 97.9 F Temperature Source Oral Pulse Rate 73 Pulse Rate [Left Radial] 74 Respiratory Rate 15 Blood Pressure 186/73 H Blood Pressure [Right Arm] 186/73 H Blood Pressure Mean 91 Blood Pressure Mean [Right Arm] 110 02 Sat by Pulse Oximetry 100 100 Oxygen Delivery Method Room Air Lab Data Labs: Lab Results 07/31/23 09:29: WBC 7.0, RBC 4.22, Hgb 13.0, Hct 38.4, MCV 91.0, MCH 30.8, MCHC 33.9, RDW 13.4, Plt Count 250, MPV 7.5, Neut % (Auto) 50.5, Lymph % (Auto) 38.9, Major % (Auto) 7.6, Eos % (Auto) 2.7, Baso % (Auto) 0.3, Neut # (Auto) 3.5, Lymph # (Auto) 2.7, Major # (Auto) 0.5, Eos # (Auto) 0.2, Baso # (Auto) 0.0, Sodium 138, Potassium 4.1, Chloride 106, Carbon Dioxide 27, Anion Gap 9.1, BUN 26 H, Creatinine 1.10 H, Estimated Creat Clear 38, Estimated GFR 47 L, Est GFR ( Amer) 57 L, Glucose 85, Calcium 9.4, Magnesium 2.3, Total Bilirubin 0.7, AST 31, ALT 21, Alkaline Phosphatase 105, Troponin I < 0.01, NT-Pro-B Natriuret Pep 1370 H, Total Protein 7.6, Albumin 4.1, Globulin 3.5 H, Albumin/Globulin Ratio 1.2, Lipase 153 07/31/23 09:38: Urine Color Yellow, Urine Appearance Clear, Urine pH 8.0, Ur Specific [place] 1.010, Urine Protein Negative, Urine Glucose (UA) Negative, Urine Ketones Negative, Urine Blood Negative, Urine Nitrate Negative, Urine Bilirubin Negative, Urine Urobilinogen 0.2, Ur Leukocyte Esterase Negative, Urine RBC None, Urine WBC Occasional, Ur Squamous Epith Cells Occasional, Urine Bacteria None 07/31/23 12:22: Troponin I < 0.01 07/31/23 09:29 07/31/23 09:29 Response Orders (Tests/Meds): ED MEDICATIONS Generic Name Dose Route Start Last Admin Trade Name Freq PRN Reason Stop Dose Admin Atorvastatin Calcium 40 mg 07/31/23 21:00 Atorvastatin 40mg Tablet PO 08/30/23 20:59 HS MAYELA Discontinued Medications Generic Name Dose Route Start Last Admin Trade Name Freq PRN Reason Stop Dose Admin Aspirin 325 mg 07/31/23 09:36 07/31/23 09:58 Aspirin 325mg Tablet PO 07/31/23 09:37 325 mg ONCE ONE Administration Clopidogrel Bisulfate 75 mg 07/31/23 13:13 07/31/23 13:58 Clopidogrel 75mg Tab PO 07/31/23 13:14 75 mg ONCE ONE Administration Iopamidol 100 ml 07/31/23 12:13 07/31/23 12:13 Iopamidol-370 (76%);100ml Bottle IV 07/31/23 12:14 100 ml ONCE ONE Administration Sodium Chloride 50 ml 07/31/23 12:13 07/31/23 12:13 0.9 % Sodium Chloride 50 Ml Vial IV 07/31/23 12:14 50 ml ONCE ONE Administration Sodium Chloride 10 ml 07/31/23 12:13 07/31/23 12:13 Sodium Chloride 0.9% 10ml Syr (Rad Only) IV 07/31/23 12:14 10 ml ONCE ONE Administration ORDERS Category Date Time Status CT angio head Stat Cat Scan 07/31/23 11:[address] angio neck Stat Cat Scan 07/31/23 11:[address] head/brain wo con Stat Cat Scan 07/31/23 11:30 Taken CXR --portable [XR chest portable] Stat Exams 07/31/23 09:36 Completed Brain Natriuretic Peptide Stat Lab 07/31/23 09:29 Completed CBC w/Auto Diff [Complete Blood Count Auto Diff] Stat Lab 07/31/23 09:29 Completed CMP [Comprehensive Metabolic Panel] Stat Lab 07/31/23 09:29 Completed Lipase Stat Lab 07/31/23 09:29 Completed Magnesium Stat Lab 07/31/23 09:29 Completed Trop I [Troponin I] Stat Lab 07/31/23 09:29 Completed Troponin I Q3H Lab 07/31/23 12:22 Completed Troponin I Q3H Lab 07/31/23 15:45 Ordered UA [Urinalysis and Microscopic] Stat Lab 07/31/23 09:38 Completed ECG initial Besson Routine Y 07/31/23 09:13 Completed ECG repeat same Besson Routine Y 07/31/23 10:04 Completed MDM Narrative Medical Decision Narrative: 87-year-old female history of hypertension, hyperlipidemia, anxiety, dementia, CVA currently on daily aspirin presenting with chest pain. Patient daughter is providing most of history at bedside because patient does not remember the encounter. Patient's daughter states patient was at home and she currently lives alone. She called her daughter stating that she did not feel well and was complaining of chest pain. She seemed clammy, pale, as if she was not feeling well. Patient's daughter gave her as needed oxazepam, but this did not help symptoms. EMS was called and patient was brought to the emergency department for further evaluation. Patient unable to contribute to history. It should be noted that patient has dementia and does not recall this issue, complicating care. History was obtained via conversation with patient's daughter and EMS. On arrival, patient hemodynamically stable, alert, oriented to person, appropriate, GCS 15, moving all extremities spontaneously, pupils equal and reactive to light. Full physical exam performed and significant for normal cardiopulmonary exam including no lower extremity edema. Patient appears to be at neurologic baseline, per daughter. Lungs clear to auscultation. Abdomen is soft, tender in suprapubic area. No evidence of peritonitis.. Differential includes gastritis, pancreatitis, UTI, CHF, ACS, CA, coronary artery dissection, pneumothorax, PE, dissection, pericarditis, myocarditis, pneumothorax, aortic aneurysm, pneumonia, bronchitis, among others. Patient was given 325 mg p.o. aspirin for symptomatic management and correction of underlying abnormalities. Workup independently interpreted and significant for nonactionable CBC or chemistry. Troponin negative. Urinalysis negative. Lipase negative. Chest x-ray without acute cardiopulmonary airspace disease. See radiology read for full review of final results. Independent interpretation of EKG shows sinus rhythm with first-degree AV block IA interval 224 ms. Ventricular rate 72 bpm, QRS narrow and regular, QT interval within normal limits. 1/2 mm upward sloping elevations in V2, downward sloping ST segments in inferior leads without definitive depression. patient placed on continuous cardiac monitoring and continuous pulse ox with initial blood pressure 186/73, heart rate 74, saturation 100%. Serial EKG done at 1004 demonstrates normal sinus rhythm with continued first-degree AV block IA interval 228 ms, ventricular rate 70 with normal QRS, QT intervals. No ischemic change. Heart score 5. On reevaluation, patient complaining of right-sided facial numbness and tingling. Further conversation with daughter reveals that whenever patient has syncopal episodes, she normally gets weak on the right side. Last episode was just yesterday, 07/30. Patient has been complaining of intermittent facial numbness on the right side since that time. CTA of the head and neck as well as CT head were ordered. Patient was placed in observation beginning at 9:30 AM in order to rule out evolving CA with delta troponin, as well as obtain CTA of the head and neck as well as CT head to rule out stroke and determine need for admission versus home-going. The patient was provided serial exams while awaiting results. Independent interpretation of results demonstrated severe left M1 stenosis. Neurosurgery was contacted at [facility], case was discussed at length, they recommended aspirin, Plavix, atorvastatin. If patient is to pass home-going test including ambulation, physical therapy, etc., able to go home and follow-up outpatient. Physical therapy was contacted and social work was, 2. Patient able to ambulate without issue and perform ADLs, so appropriate for home-going. Social work stated that they will work on getting patient placed that nursing facility, likely tomorrow. This was relayed to family and they were okay with this plan. Neurosurgery recommended follow-up in about 2 weeks for discussions of stenting severe M1 stenosis to prevent further weakness and falls, family was also agreeable to this plan. At this time, I feel patient is appropriate for discharge. Total observation time 5 hours.
[2023-07-31 09:57] LABS: NT Pro Brain Natriuretic Pep. 1370 pg/mL (0-450)
[2023-07-31 09:58] LABS: Microscopic, Urine URINE MICROSCOPIC (MICROSCOPIC)
[2023-07-31] MEDS: ASPIRIN 325MG TABLET 325 MG PO (09:58)
[2023-07-31 10:00] LABS: Appearance,Urine CLEAR (Clear); Bilirubin,Urine Negative (Negative); Blood, Urine Negative (Negative); Color,Urine YELLOW (Yellow); Glucose,Urine (UA) Negative (Negative); Ketones,Urine Negative (Negative); Leukocyte Esterase,Urine Negative (Negative); Nitrate,Urine Negative (Negative); Protein,Urine Negative (Negative); Urobilinogen,Urine 0.2 EU/dl (0.2)
[2023-07-31 10:01] LABS: Troponin I < 0.01 ng/ml (0.00-0.034)
--- NOTE | 2023-07-31 10:04 | ECG_ITS ---
APPROVED REPORT Exam: Resting ECG HR:70 bpm ECG Measurements Heart Rate 70 AXES CA 228 P 80 QRSd 74 QRS 58 QT 390 T 53 QTc 411 Conclusion SINUS RHYTHM WITH FIRST DEGREE AV BLOCK ABNORMAL ECG UNCONFIRMED REPORT Electronically signed by : Iam Stein MD 07/31/2023 20:34:59
[2023-07-31 10:20] LABS: Lipase 153 U/L (23-300)
[2023-07-31 10:35] LABS: Squamous Epithelial Cell,Urine Occasional #/hpf (0-5); WBC,Urine Occasional #/hpf (0-3)
--- NOTE | 2023-07-31 11:30 | CT_ITS ---
FINAL REPORT TECHNIQUE: thin section axial CT with and without IV contrast supplemented with multiplanar 3-D reconstruction of the head. This study was performed with techniques to keep radiation doses as low as reasonably achievable, (ALARA)individualized dose reduction techniques using automated exposure control or adjustment of mA and/or kV according to the patient's size were employed. CLINICAL HISTORY: Right sided facial numbness and weakness COMPARISON: 05/20/2023 FINDINGS: HEAD CT: The ventricles are enlarged. There is moderate atrophy. There is extensive periventricular white matter change likely related to small vessel disease. There is no evidence of hemorrhage. No masses are identified. No extra axial fluid is seen. The sinuses are normal. CTA HEAD: The cranial circulation is unremarkable. There is no significant stenosis, aneurysm or occlusion. IMPRESSION: No acute process. Reviewed, Interpreted and Dictated by Moo Mclain MD Transcribed by Angeles Deras Authenticated and . [facility]
--- NOTE | 2023-07-31 11:30 | CT_ITS ---
FINAL REPORT TECHNIQUE: multiple axial CT images were performed from the foramen magnum to the vertex without enhancement. CLINICAL HISTORY: Right sided facial numbness and weakness COMPARISON: 05/20/2023 FINDINGS: The ventricles are enlarged. There is moderate atrophy. There is extensive periventricular white matter change likely related to small vessel disease. There is no evidence of hemorrhage. No masses are identified. No extra-axial fluid is seen. The sinuses are normal. IMPRESSION: Atrophy and chronic changes without acute process. Reviewed, Interpreted and Dictated by Moo Mclain MD Transcribed by Angeles Deras Authenticated and [facility]
--- NOTE | 2023-07-31 11:30 | CT_ITS ---
FINAL REPORT TECHNIQUE: NASCET technique utilized for stenosis evaluation. CLINICAL HISTORY: Right sided facial numbness and weakness FINDINGS: Limited images of the lung apices demonstrate biapical pleural-parenchymal scarring. RIGHT CAROTID: There is moderate calcification with approximately 50% stenosis. LEFT CAROTID: There is mild calcification with approximately 50% stenosis. VERTEBRALS: The vertebrals are patent. No significant stenosis is present. IMPRESSION: 50% stenosis of the bilateral carotid arteries. Reviewed, Interpreted and Dictated by Moo Mclain MD Transcribed by Angeles Deras Authenticated and [facility]
[2023-07-31 11:44] LABS: Magnesium 2.3 mg/dl (1.6-2.3)
[2023-07-31] MEDS: SODIUM CHLORIDE 0.9% 10ML SYR (RAD ONLY) 10 ML IV (12:13)
[2023-07-31] MEDS: 0.9 % SODIUM CHLORIDE 50 ML VIAL IV (12:13)
[2023-07-31] MEDS: IOPAMIDOL-370 (76%);100ML BOTTLE 100 ML IV (12:13)
[2023-07-31 12:59] LABS: Troponin I < 0.01 ng/ml (0.00-0.034)
[2023-07-31] MEDS: CLOPIDOGREL 75MG TAB 75 MG PO (13:58)
--- NOTE | 2023-07-31 14:30 | SW/DCPLANNER ---
Addendum entered by Marta Loyola 07/31/23 15:47: Patient information has been faxed to [employer] at [phone]. Original Note: I spoke w/ patient and her daughter in the ED regarding discharge plans. Daughter states that patient is having a hard time at home moving around on her own. PT/OT evaluated patient and recommended home w/ home health. Daughter stated that she has started to look into LTC for this patient: [facility] (information faxed to [place] [phone]), [facility] ( left) and [facility] ( left). Patient will be discharged from ED and I will search for LTC: daughter is agreeable w/ this plan.
[2023-07-31 14:37] VITALS: BP 162/77; PULSE 77; RESP 18; TEMP 36.6; O2SAT 99
--- NOTE | 2023-07-31 14:47 | HMH.PTEV ---
Physical Therapy Evaluation Rehab PT IP Evaluation Start: 07/31/23 13:34 Freq: ONCE Status: Discharge Protocol: Document 07/31/23 14:36 JABARIJENNIFER (Rec: 07/31/23 14:47 JAMES [id number]) Subjective/History History History 87 yowf brought to ED with c/o weakness, facial numbness and chest pain. She has PMH of hypertension, hyperlipidemia, anxiety, dementia, CVA currently on daily aspirin. She is accompanied by her daughter who provides most of her history as pt is poor historian. She lives alone, 2 steps to enter the home, and she is generally independent with ambulation using a SC. She has become progressively less able to care for herself and perform ADLs as needed over the past 1 yr per her daughter. Subjective Subjective Pt currently has no c/o and is agreeable to mobility assessment. Pt does appear mildly confused with providing her baseline hx, but is alert and oriented and able to follow all commands. New diagnosis of cancer in past 12 No months? Rehab PT IP Eval Objective Appearance Patient Behavior Appropriate Patient Orientation Person,Place Difficulty following instructions none Speech Pattern Clear Ambulation Patient Able to Ambulate Yes Ambulation Observation IP General Gait Pattern Observation No Deviations/Normal Ambulation Distance (feet) 100 Ambulation Assistive Device None Ambulation Ability Contact Guard/Hand Hold Balance Ability to Arise Able, uses arms to help Sitting Balance Steady, safe Standing Balance Steady, wide stance Dynamic Sitting Balance Ability Good Dynamic Standing Balance Ability Fair Transfers Bed Transfer Ability Supervision/Stand by Chair Transfer Ability Supervision/Stand by Sit to Stand Bed Transfer Ability Supervision/Stand by Sit to Stand Chair Transfer Ability Supervision/Stand by ROM All Extremities PT ROM Status WFL MMT All Extremities PT MMT WFL Rehab PT IP prob,goals,plan Problems Date of Evaluation: 07/31/23 Discharge Plan PT Discharge Plan Pt currently appears to be at baseline for all mobility at this time. She is appropriate for home health therapy after return home once medically stable for d/c. She appears to be a good candidate for [facility] vs aides for assistance with home care and ADLs. Eval Complexity Eval Charge Codes 59010 - High Complexity PHYSICIAN CERTIFICATION: I certify the specified therapy services for Cherry Phillip Smith are required, authorized, and reviewed every 30 days.
--- NOTE | 2023-07-31 14:53 | HMH.OTEV ---
OT Inpatient Evaluation Rehab OT IP Evaluation Start: 07/31/23 13:34 Freq: ONCE Status: Discharge Protocol: Document 07/31/23 14:47 [facility] (Rec: 07/31/23 14:53 [facility] [id number]) Rehab OT IP Assessment Subjective History Pt oriented x 3 on arrival. Pt's daughter present and supportive during therapy evaluation. Pt came to ER today due to chest pain. History and Physical: 87-year-old female history of hypertension, hyperlipidemia, anxiety, dementia, CVA currently on daily aspirin presenting with chest pain. Patient daughter is providing most of history at bedside because patient does not remember the encounter. Patient's daughter states patient was at home and she currently lives alone. She called her daughter stating that she did not feel well and was complaining of chest pain . She seemed clammy, pale, as if she was not feeling well. Patient's daughter gave her as needed oxazepam, but this did not help symptoms. EMS was called and patient was brought to the emergency department for further evaluation. Patient unable to contribute to history Subjective I can normally dress myself. Prior to being in the hospital , pt reports she lives alone. Pt claims to normally be independent with ADLs such as dressing, sponge bathing, and feeding. Family does assist with IADLs. Normally patient uses cane during functional mobility tasks. Objective Patient Orientation Person,Place,Birthday Right Upper Extremity Gross ROM WFL Left Upper Extremity Gross ROM WFL Bed Mobility bed mobility-scooting,bed mobility - supine/sit Assist Level Supervision/Stand by Transfer Training Sit/Stand Transfer Assist Level Supervision/Stand by Lower Body Dressing Ability Standby Assistance Rehab OT IP prob,goals,plan Problems Date of Evaluation: 07/31/23 OT IP Problems Bed Mobility,Transfers,Balance ,Self care,Safety Rehab Potential Rehab Potential Good Discharge Plan OT Discharge Plan Pt appears to be at her baseline with functional transfers and ADL independence . Pt can return home with family assist once she is medically stable per physician . Therapist recommends patient have HH OT evaluation upon returning home. Eval Complexity Eval Charge Codes 82614 - Moderate Complexity PHYSICIAN CERTIFICATION: I certify the specified therapy services for Cherry Fisher Smith are required, authorized, and reviewed every 30 days.
--- NOTE | 2023-08-01 07:54 | CARE MANAGER ---
Faxed referral to [facility] for appointment for patient. They state they will reach out to patient. CINDY Silva
== END 2023-07-31 14:38 | disposition home or self-care (01) ==
PROVIDERS: Emergency Provider Emergency Medicine; PCP Family Medicine
DX: G45.9 Transient cerebral ischemic attack, unspecified (principal); I66.9 Occlusion and stenosis of unspecified cerebral artery; R07.9 Chest pain, unspecified; F03.90 Unspecified dementia, unspecified severity, without behavioral disturbance, psychotic disturbance, mood disturbance, and anxiety; I10 Essential (primary) hypertension; E78.5 Hyperlipidemia, unspecified; Z79.82 Long term (current) use of aspirin; I44.0 Atrioventricular block, first degree
CPT/HCPCS: 70450; 70496; 70498; 71045; 80053; 81001; 83690; 83735; 83880; 84484; 85025; 93005; 99285; Q9967